=== PATIENT | female | born 1930 | race African-American/Black ===

== ENCOUNTER 2017-09-22 16:17 | Observation (INO) ==
[2017-09-22] MEDS ORDERED: MAGNESIUM SULF RIDER 2 GM in PREMIX 1 EACH IV PRN ×2 (16:31→16:35)
[2017-09-22] MEDS ORDERED: BISACODYL 5 MG TABLET PO PRN (16:31)
[2017-09-22] MEDS ORDERED: ONDANSETRON 4 MG/2 ML VIAL IV PRN (16:31)
[2017-09-22] MEDS ORDERED: guaiFENesin/DM ER 600-30 MG TABLET PO PRN (16:31)
[2017-09-22] MEDS ORDERED: MAGNESIUM SULF RIDER 4 GM in PREMIX 1 EACH IV PRN (16:31)
[2017-09-22] MEDS ORDERED: ACETAMINOPHEN 325 MG TABLET PO PRN (16:31)
[2017-09-22] MEDS ORDERED: ZALEPLON 5 MG CAPSULE PO PRN (16:31)
[2017-09-22] MEDS ORDERED: POTASSIUM CHLORIDE RIDER 10 MEQ in PREMIX 1 EACH IV PRN ×2 (16:35→19:38)
[2017-09-22] MEDS ORDERED: ASPIRIN 325 MG TABLET PO ONE (16:35)
[2017-09-22] MEDS ORDERED: NITROGLYCERIN SL 0.4 MG TABLET SL PRN (16:45)
[2017-09-22 17:39] LABS: Basophils # 0.1 10*3/uL (0.0-0.2); Basophils % 0.6 % (0.0-0.8); Eosinophils % 0.2 % (0.00-10.9); Hemoglobin 12.3 GM/DL (12.0-16.0); Immature Granulocytes % 1.1 %; Immature Granulocytes Absolute 0.09 #; Lymphocytes # 1.1 10*3/uL (1.4-4.0); Lymphocytes % 13.1 % (21.3-54.2); Mean Corpuscular HGB Conc 34.2 GM/DL (32-36); Mean Corpuscular Hemoglobin 30 PG (27-34); Mean Corpuscular Volume 86.5 FL (87-102); Mean Platelet Volume 11.1 FL (9.6-12.0); Monocytes # 0.3 10*3/uL (0.11-0.8); Monocytes % 3.8 % (1.7-12.7); Neutrophils # 6.9 10*3/uL (1.4-7.4); Neutrophils % 81.2 % (38.7-73.9); Platelet Count 223 T/CUMM (130-400); Red Blood Count 4.16 MC/CUMM (3.8-5.5); Red Cell Distribution Width 15.2 % (9.3-17.3); White Blood Count 8.5 T/CUMM (4-12)
[2017-09-22 17:50] LABS: INR 0.9
[2017-09-22] MEDS ORDERED: ENOXAPARIN 100 MG/ML SYRINGE SUBCUT ONE (18:00)
[2017-09-22 18:08] LABS: Albumin 3.7 G/DL (3.4-5.0); Bilirubin,Total 0.7 MG/DL (0.2-1.0); Calcium 9.8 MG/DL (8.5-10.1); Osmolality,Calculated 291.1 MOS/KG (273-304); Potassium 3.6 MMOL/L (3.5-5.1); Total Protein 7.1 G/DL (6.4-8.3)
[2017-09-22 18:10] LABS: Troponin I Only < 0.015 NG/ML (0.00-0.045)
[2017-09-22] MEDS: SODIUM CHLORIDE 0.9% 1,000 ML IV SCH (18:21)
[2017-09-22] MEDS ORDERED: hydrALAZINE 20 MG/1 ML VIAL IV PRN (18:26)
[2017-09-22 20:04] LABS: Troponin I Only < 0.015 NG/ML (0.00-0.045)
[2017-09-22] MEDS ORDERED: ATORVASTATIN 40 MG TABLET PO SCH (21:00)
[2017-09-22] MEDS: GABAPENTIN 100 MG CAPSULE PO SCH (21:31)
[2017-09-22] MEDS: DOCUSATE SODIUM 100 MG CAPSULE PO SCH (21:31)
[2017-09-22] MEDS: DONEPEZIL 5 MG TABLET PO SCH (21:31)
[2017-09-22] MEDS: cloNIDine 0.1 MG TABLET PO SCH (21:32)
[2017-09-22] MEDS: ATORVASTATIN 40 MG TABLET PO SCH (21:32)
[2017-09-22] MEDS: OXYBUTYNIN 5 MG TABLET PO SCH (21:32)
[2017-09-22] MEDS: VERAPAMIL 120 MG TABLET PO SCH (21:32)
[2017-09-22 23:21] LABS: Troponin I Only < 0.015 NG/ML (0.00-0.045)
[2017-09-23 05:07] LABS: Basophils # 0.1 10*3/uL (0.0-0.2); Basophils % 1.1 % (0.0-0.8); Eosinophils # 0.2 10*3/uL (0.0-0.87); Hematocrit 31.4 VOL% (35.7-47.0); Immature Granulocytes % 0.9 %; Immature Granulocytes Absolute 0.07 #; Lymphocytes # 1.8 10*3/uL (1.4-4.0); Mean Corpuscular HGB Conc 31.8 GM/DL (32-36); Mean Corpuscular Hemoglobin 28 PG (27-34); Mean Platelet Volume 10.9 FL (9.6-12.0); Monocytes # 0.7 10*3/uL (0.11-0.8); Monocytes % 8.8 % (1.7-12.7); Neutrophils # 4.8 10*3/uL (1.4-7.4); Neutrophils % 63.2 % (38.7-73.9); Platelet Count 183 T/CUMM (130-400); Red Blood Count 3.53 MC/CUMM (3.8-5.5); White Blood Count 7.5 T/CUMM (4-12)
[2017-09-23 05:29] LABS: Calcium 8.6 MG/DL (8.5-10.1); Osmolality,Calculated 287.1 MOS/KG (273-304); Potassium 3.1 MMOL/L (3.5-5.1); Risk Ratio 2.69; VLDL CHOLESTEROL 13.4 MG/DL
[2017-09-23] MEDS ORDERED: POTASSIUM CHLORIDE IV SCH (06:00)
[2017-09-23] MEDS ORDERED: SODIUM CHLORIDE 0.9% IV SCH (06:00)
[2017-09-23] MEDS ORDERED: DIAZEPAM 5 MG TABLET PO ONE ×2 (06:30→08:00)
[2017-09-23] MEDS ORDERED: MAGNESIUM SULF RIDER 2 GM in PREMIX 1 EACH IV PRN (06:30)
[2017-09-23] MEDS ORDERED: HEPARIN/NACL 0.9% 2 UNITS/ML 2,000 ML IV ONE (06:48)
[2017-09-23] MEDS ORDERED: LIDOCAINE 1% 20 ML VIAL ONE (06:48)
[2017-09-23] MEDS ORDERED: diphenhydrAMINE CAP 25 MG CAPSULE ONE (06:55)
[2017-09-23] MEDS ORDERED: MIDAZOLAM 2 MG/2 ML VIAL ONE (07:29)
[2017-09-23] MEDS ORDERED: HYDROmorphone 2 MG/1 ML VIAL ONE (07:29)
[2017-09-23] MEDS ORDERED: BIVALIRUDIN 250 MG VIAL IV ONE ×2 (07:41→08:45)
[2017-09-23] MEDS ORDERED: LABETALOL 20 MG/4 ML SYRINGE IV ONE ×3 (07:44→08:55)
[2017-09-23] MEDS ORDERED: diphenhydrAMINE CAP 25 MG CAPSULE PO ONE (08:00)
[2017-09-23] MEDS ORDERED: ASPIRIN EC 81 MG TABLET PO SCH (09:00)
[2017-09-23] MEDS ORDERED: TICAGRELOR 90 MG TABLET ONE (09:10)
[2017-09-23] MEDS: SODIUM CHLORIDE 0.9% 1,000 ML IV SCH ×3 (10:25→16:37)
[2017-09-23] MEDS: ASPIRIN 325 MG TABLET PO SCH (10:48)
[2017-09-23] MEDS: CHOLECALCIFEROL 1,000 UNIT TABLET PO SCH (10:48)
[2017-09-23] MEDS: predniSONE 10 MG TABLET PO SCH (10:48)
[2017-09-23] MEDS: hydroCHLOROthiazide 25 MG TABLET PO SCH (10:49)
[2017-09-23] MEDS: FOLIC ACID 1 MG TABLET PO SCH (10:49)
[2017-09-23] MEDS: VERAPAMIL 120 MG TABLET PO SCH ×2 (10:51→20:53)
[2017-09-23] MEDS: cloNIDine 0.1 MG TABLET PO SCH ×2 (10:52→20:54)
[2017-09-23] MEDS: DOCUSATE SODIUM 100 MG CAPSULE PO SCH ×2 (10:52→20:54)
[2017-09-23] MEDS: MULTIVITAMIN (CENTRUM) TABLET PO SCH (10:52)
[2017-09-23] MEDS: OXYBUTYNIN 5 MG TABLET PO SCH ×2 (10:52→20:54)
[2017-09-23] MEDS: PANTOPRAZOLE 40 MG TABLET PO SCH (10:52)
[2017-09-23] MEDS: LORATADINE 10 MG TABLET PO SCH (10:52)
[2017-09-23] MEDS: OMEGA 3 ACID ETHYL ESTERS 1 GM CAPSULE PO SCH (10:53)
[2017-09-23] MEDS: TICAGRELOR 90 MG TABLET PO SCH (20:53)
[2017-09-23] MEDS: ATORVASTATIN 40 MG TABLET PO SCH (20:54)
[2017-09-23] MEDS: GABAPENTIN 100 MG CAPSULE PO SCH (20:54)
[2017-09-23] MEDS: DONEPEZIL 5 MG TABLET PO SCH (20:54)
[2017-09-24 02:47] LABS: Basophils # 0.1 10*3/uL (0.0-0.2); Basophils % 0.7 % (0.0-0.8); Eosinophils # 0.2 10*3/uL (0.0-0.87); Eosinophils % 1.6 % (0.00-10.9); Hemoglobin 10.8 GM/DL (12.0-16.0); Immature Granulocytes % 1.5 %; Immature Granulocytes Absolute 0.15 #; Lymphocytes # 1.4 10*3/uL (1.4-4.0); Lymphocytes % 14.3 % (21.3-54.2); Mean Corpuscular HGB Conc 32.7 GM/DL (32-36); Mean Corpuscular Hemoglobin 29 PG (27-34); Mean Corpuscular Volume 87.8 FL (87-102); Mean Platelet Volume 11.1 FL (9.6-12.0); Monocytes # 0.7 10*3/uL (0.11-0.8); Monocytes % 7.3 % (1.7-12.7); Neutrophils # 7.3 10*3/uL (1.4-7.4); Neutrophils % 74.6 % (38.7-73.9); Platelet Count 191 T/CUMM (130-400); Red Blood Count 3.76 MC/CUMM (3.8-5.5); Red Cell Distribution Width 15.3 % (9.3-17.3); White Blood Count 9.8 T/CUMM (4-12)
[2017-09-24 03:05] LABS: Calcium 9.2 MG/DL (8.5-10.1); Osmolality,Calculated 281.4 MOS/KG (273-304); Potassium 3.4 MMOL/L (3.5-5.1)
[2017-09-24] MEDS ORDERED: POTASSIUM CHLORIDE IV SCH (03:30)
[2017-09-24] MEDS ORDERED: SODIUM CHLORIDE 0.9% IV SCH (03:30)
[2017-09-24] MEDS: hydroCHLOROthiazide 25 MG TABLET PO SCH ×2 (07:30→08:31)
[2017-09-24] MEDS: cloNIDine 0.1 MG TABLET PO SCH ×2 (07:31→08:31)
[2017-09-24] MEDS: VERAPAMIL 120 MG TABLET PO SCH ×3 (07:31→20:20)
[2017-09-24] MEDS: LORATADINE 10 MG TABLET PO SCH (08:29)
[2017-09-24] MEDS: TICAGRELOR 90 MG TABLET PO SCH ×2 (08:29→20:20)
[2017-09-24] MEDS: FOLIC ACID 1 MG TABLET PO SCH (08:29)
[2017-09-24] MEDS: CHOLECALCIFEROL 1,000 UNIT TABLET PO SCH (08:29)
[2017-09-24] MEDS: PANTOPRAZOLE 40 MG TABLET PO SCH (08:29)
[2017-09-24] MEDS: ASPIRIN EC 81 MG TABLET PO SCH (08:29)
[2017-09-24] MEDS: MULTIVITAMIN (CENTRUM) TABLET PO SCH (08:29)
[2017-09-24] MEDS: OXYBUTYNIN 5 MG TABLET PO SCH ×2 (08:29→20:20)
[2017-09-24] MEDS: predniSONE 10 MG TABLET PO SCH (08:29)
[2017-09-24] MEDS: OMEGA 3 ACID ETHYL ESTERS 1 GM CAPSULE PO SCH (08:30)
[2017-09-24] MEDS: DOCUSATE SODIUM 100 MG CAPSULE PO SCH ×2 (08:30→20:21)
[2017-09-24] MEDS: ASPIRIN 325 MG TABLET PO SCH (08:30)
[2017-09-24] MEDS: SODIUM CHLORIDE 0.9% 1,000 ML IV SCH ×2 (08:32→10:20)
[2017-09-24] MEDS: CARVEDILOL 3.125 MG TABLET PO SCH ×2 (10:20→20:20)
[2017-09-24] MEDS: GABAPENTIN 100 MG CAPSULE PO SCH (20:20)
[2017-09-24] MEDS: ATORVASTATIN 40 MG TABLET PO SCH (20:21)
[2017-09-24] MEDS: DONEPEZIL 5 MG TABLET PO SCH (20:21)
[2017-09-25 07:58] VITALS: BP 138/69
[2017-09-25] MEDS: hydroCHLOROthiazide 25 MG TABLET PO SCH (08:27)
[2017-09-25] MEDS: CHOLECALCIFEROL 1,000 UNIT TABLET PO SCH (08:27)
[2017-09-25] MEDS: predniSONE 10 MG TABLET PO SCH (08:27)
[2017-09-25] MEDS: VERAPAMIL 120 MG TABLET PO SCH (08:28)
[2017-09-25] MEDS: ASPIRIN EC 81 MG TABLET PO SCH (08:28)
[2017-09-25] MEDS: OXYBUTYNIN 5 MG TABLET PO SCH (08:28)
[2017-09-25] MEDS: MULTIVITAMIN (CENTRUM) TABLET PO SCH (08:28)
[2017-09-25] MEDS: PANTOPRAZOLE 40 MG TABLET PO SCH (08:28)
[2017-09-25] MEDS: LORATADINE 10 MG TABLET PO SCH (08:28)
[2017-09-25] MEDS: DOCUSATE SODIUM 100 MG CAPSULE PO SCH (08:28)
[2017-09-25] MEDS: OMEGA 3 ACID ETHYL ESTERS 1 GM CAPSULE PO SCH (08:28)
[2017-09-25] MEDS: TICAGRELOR 90 MG TABLET PO SCH (08:28)
[2017-09-25] MEDS: FOLIC ACID 1 MG TABLET PO SCH (08:29)
[2017-09-25] MEDS: CARVEDILOL 3.125 MG TABLET PO SCH (08:29)
== END 2017-09-25 12:56 | disposition home or self-care (01) ==
LOC: EDBD → INTOOBSV 16:41 → N.TELES 16:41
PROVIDERS: ADMIT Internal Medicine Cardiovascular Disease; ATTEND Internal Medicine Cardiovascular Disease
PROC: CLCCHCL (ICD-10-PCS; 2017-09-23 07:45)

== ENCOUNTER 2017-09-26 12:47 | Observation (INO) ==
[2017-09-26 13:34] LABS: Basophils # 0.1 10*3/uL (0.0-0.2); Basophils % 0.7 % (0.0-0.8); Eosinophils # 0.3 10*3/uL (0.0-0.87); Eosinophils % 2.7 % (0.00-10.9); Hematocrit 29.5 VOL% (35.7-47.0); Hemoglobin 9.6 GM/DL (12.0-16.0); Immature Granulocytes % 1.1 %; Lymphocytes # 0.8 10*3/uL (1.4-4.0); Lymphocytes % 8.3 % (21.3-54.2); Mean Corpuscular HGB Conc 32.5 GM/DL (32-36); Mean Corpuscular Hemoglobin 29 PG (27-34); Mean Corpuscular Volume 88.3 FL (87-102); Mean Platelet Volume 10.8 FL (9.6-12.0); Monocytes # 0.6 10*3/uL (0.11-0.8); Monocytes % 6.6 % (1.7-12.7); Neutrophils # 7.4 10*3/uL (1.4-7.4); Neutrophils % 80.6 % (38.7-73.9); Platelet Count 179 T/CUMM (130-400); Red Blood Count 3.34 MC/CUMM (3.8-5.5); Red Cell Distribution Width 15.4 % (9.3-17.3); White Blood Count 9.2 T/CUMM (4-12)
[2017-09-26 13:54] LABS: Albumin 3.1 G/DL (3.4-5.0); Calcium 9.4 MG/DL (8.5-10.1); Osmolality,Calculated 283.8 MOS/KG (273-304); Potassium 3.2 MMOL/L (3.5-5.1); Total Protein 5.8 G/DL (6.4-8.3); Troponin I Only 0.021 NG/ML (0.00-0.045)
[2017-09-26] MEDS ORDERED: LORazepam 1 MG TABLET PO STA (14:13)
[2017-09-26] MEDS ORDERED: LORazepam 1 MG TABLET ONE (14:15)
[2017-09-26 14:18] LABS: PT Patient Result 10.4 SECS; Partial Thromboplastin Time 22.8 SECS (0-40)
[2017-09-26] MEDS ORDERED: MORPHINE 2 MG/1 ML SYRINGE IV PRN (16:30)
[2017-09-26] MEDS ORDERED: ACETAMINOPHEN 325 MG TABLET PO PRN (16:30)
[2017-09-26] MEDS ORDERED: ONDANSETRON 4 MG/2 ML VIAL IV PRN (16:39)
[2017-09-26] MEDS ORDERED: MAGNESIUM SULF RIDER 4 GM in PREMIX 1 EACH IV PRN (16:39)
[2017-09-26] MEDS ORDERED: POTASSIUM CHLORIDE RIDER 10 MEQ in PREMIX 1 EACH IV PRN (16:39)
[2017-09-26] MEDS ORDERED: DOCUSATE SODIUM 100 MG CAPSULE PO PRN ×2 (16:39→16:47)
[2017-09-26] MEDS ORDERED: ZALEPLON 5 MG CAPSULE PO PRN (16:39)
[2017-09-26] MEDS ORDERED: MAGNESIUM SULF RIDER 2 GM in PREMIX 1 EACH IV PRN (16:39)
[2017-09-26] MEDS ORDERED: ENOXAPARIN 30 MG/0.3 ML SYRINGE SUBCUT SCH (17:00)
[2017-09-26] MEDS: GABAPENTIN 100 MG CAPSULE PO SCH (21:55)
[2017-09-26] MEDS: TICAGRELOR 90 MG TABLET PO SCH (21:55)
[2017-09-26] MEDS: ATORVASTATIN 40 MG TABLET PO SCH (21:55)
[2017-09-26] MEDS: OXYBUTYNIN 5 MG TABLET PO SCH (21:56)
[2017-09-27 06:21] LABS: Basophils # 0.1 10*3/uL (0.0-0.2); Basophils % 0.8 % (0.0-0.8); Eosinophils # 0.4 10*3/uL (0.0-0.87); Eosinophils % 5.4 % (0.00-10.9); Hematocrit 28.8 VOL% (35.7-47.0); Hemoglobin 9.6 GM/DL (12.0-16.0); Immature Granulocytes % 1.2 %; Immature Granulocytes Absolute 0.09 #; Lymphocytes # 0.9 10*3/uL (1.4-4.0); Mean Corpuscular HGB Conc 33.3 GM/DL (32-36); Mean Corpuscular Hemoglobin 29 PG (27-34); Mean Corpuscular Volume 87.5 FL (87-102); Mean Platelet Volume 11.2 FL (9.6-12.0); Monocytes # 0.6 10*3/uL (0.11-0.8); Monocytes % 7.2 % (1.7-12.7); Neutrophils # 5.7 10*3/uL (1.4-7.4); Neutrophils % 73.4 % (38.7-73.9); Platelet Count 176 T/CUMM (130-400); Red Blood Count 3.29 MC/CUMM (3.8-5.5); Red Cell Distribution Width 15.4 % (9.3-17.3); White Blood Count 7.8 T/CUMM (4-12)
[2017-09-27 07:07] LABS: Calcium 9.2 MG/DL (8.5-10.1); Osmolality,Calculated 286.4 MOS/KG (273-304); Potassium 3.2 MMOL/L (3.5-5.1); Thyroid Stimulating Hormone 2.25 uIU/ml (0.358-3.74)
[2017-09-27] MEDS ORDERED: hydroCHLOROthiazide 25 MG TABLET PO SCH (09:00)
[2017-09-27] MEDS: CHOLECALCIFEROL 1,000 UNIT TABLET PO SCH (13:32)
[2017-09-27] MEDS: TICAGRELOR 90 MG TABLET PO SCH ×2 (13:33→22:04)
[2017-09-27] MEDS: predniSONE 10 MG TABLET PO SCH (13:33)
[2017-09-27] MEDS: FOLIC ACID 1 MG TABLET PO SCH (13:33)
[2017-09-27] MEDS: PANTOPRAZOLE 40 MG TABLET PO SCH (13:34)
[2017-09-27] MEDS: ASPIRIN EC 81 MG TABLET PO SCH (13:34)
[2017-09-27] MEDS: OXYBUTYNIN 5 MG TABLET PO SCH ×2 (13:35→22:05)
[2017-09-27] MEDS: OMEGA 3 ACID ETHYL ESTERS 1 GM CAPSULE PO SCH (13:36)
[2017-09-27] MEDS: POTASSIUM CHLORIDE 20 MEQ TABLET PO PRN ×4 (15:39→22:04)
[2017-09-27] MEDS: ATORVASTATIN 40 MG TABLET PO SCH (22:04)
[2017-09-27] MEDS: GABAPENTIN 100 MG CAPSULE PO SCH (22:05)
[2017-09-28 05:14] LABS: Basophils # 0.1 10*3/uL (0.0-0.2); Basophils % 0.6 % (0.0-0.8); Eosinophils # 0.2 10*3/uL (0.0-0.87); Eosinophils % 1.9 % (0.00-10.9); Hematocrit 29.7 VOL% (35.7-47.0); Hemoglobin 9.8 GM/DL (12.0-16.0); Immature Granulocytes % 0.9 %; Immature Granulocytes Absolute 0.08 #; Lymphocytes # 0.8 10*3/uL (1.4-4.0); Lymphocytes % 8.6 % (21.3-54.2); Mean Corpuscular Hemoglobin 29 PG (27-34); Mean Corpuscular Volume 88.9 FL (87-102); Mean Platelet Volume 10.5 FL (9.6-12.0); Monocytes # 0.6 10*3/uL (0.11-0.8); Monocytes % 7.1 % (1.7-12.7); Neutrophils # 7.3 10*3/uL (1.4-7.4); Neutrophils % 80.9 % (38.7-73.9); Platelet Count 169 T/CUMM (130-400); Red Blood Count 3.34 MC/CUMM (3.8-5.5); White Blood Count 9.1 T/CUMM (4-12)
[2017-09-28 05:33] LABS: Calcium 8.9 MG/DL (8.5-10.1); Osmolality,Calculated 287.3 MOS/KG (273-304); Potassium 3.8 MMOL/L (3.5-5.1)
[2017-09-28] MEDS ORDERED: amLODIPine 5 MG TABLET PO SCH (09:00)
[2017-09-28] MEDS: OXYBUTYNIN 5 MG TABLET PO SCH (09:19)
[2017-09-28] MEDS: TICAGRELOR 90 MG TABLET PO SCH (09:19)
[2017-09-28] MEDS: OMEGA 3 ACID ETHYL ESTERS 1 GM CAPSULE PO SCH (09:19)
[2017-09-28] MEDS: CHOLECALCIFEROL 1,000 UNIT TABLET PO SCH (09:19)
[2017-09-28] MEDS: ASPIRIN EC 81 MG TABLET PO SCH (09:19)
[2017-09-28] MEDS: predniSONE 10 MG TABLET PO SCH (09:19)
[2017-09-28] MEDS: PANTOPRAZOLE 40 MG TABLET PO SCH (09:20)
[2017-09-28] MEDS: FOLIC ACID 1 MG TABLET PO SCH (09:20)
[2017-09-28 17:43] VITALS: BP 162/94
== END 2017-09-28 17:30 | disposition home or self-care (01) ==
LOC: EDBD → EDUNIT# → N.ED 12:47 → N.EDINP 12:47 → N.TELEN 18:31
PROVIDERS: ADMIT Internal Medicine Cardiovascular Disease; ATTEND Internal Medicine Cardiovascular Disease

== ENCOUNTER 2019-01-10 09:42 | Inpatient (IN) ==
[2019-01-10] MEDS ORDERED: RACEPINEPHRINE 0.5 ML NEB RESP TX STA (10:05)
[2019-01-10 10:33] LABS: Basophils # 0.1 10*3/uL (0.0-0.2); Basophils % 0.7 % (0.0-0.8); Eosinophils # 0.1 10*3/uL (0.0-0.87); Eosinophils % 1.3 % (0.00-10.9); Hemoglobin 9.3 GM/DL (12.0-16.0); Immature Granulocytes % 0.4 %; Immature Granulocytes Absolute 0.03 #; Lymphocytes # 0.9 10*3/uL (1.4-4.0); Lymphocytes % 11.3 % (21.3-54.2); Mean Corpuscular Volume 96.8 FL (87-102); Mean Platelet Volume 11.2 FL (9.6-12.0); Monocytes % 7.7 % (1.7-12.7); Neutrophils % 78.6 % (38.7-73.9); Platelet Count 147 T/CUMM (130-400); Red Cell Distribution Width 15.1 % (9.3-17.3); White Blood Count 7.5 T/CUMM (4-12)
[2019-01-10 10:51] LABS: Albumin 2.9 G/DL (3.4-5.0); Bilirubin,Total 1.4 MG/DL (0.2-1.0); INR 1.1; Osmolality,Calculated 298.6 MOS/KG (273-304); PT Patient Result 11.4 SECS; Partial Thromboplastin Time 21.7 SECS (0-40); Total Protein 5.3 G/DL (6.4-8.3)
[2019-01-10] MEDS ORDERED: HYDROmorphone 2 MG/1 ML VIAL IV STA (10:56)
[2019-01-10] MEDS ORDERED: ONDANSETRON 4 MG/2 ML VIAL IV STA (10:56)
[2019-01-10] MEDS ORDERED: ONDANSETRON 4 MG/2 ML VIAL ONE (10:57)
[2019-01-10] MEDS ORDERED: HYDROmorphone 2 MG/1 ML VIAL ONE (10:58)
[2019-01-10] MEDS ORDERED: PIPERACILLIN/TAZOBACTAM 3,375 MG in SODIUM CHLORIDE 0.9% 100 ML IV STA (11:02)
[2019-01-10] MEDS ORDERED: NITROGLYCERIN SL 0.4 MG TABLET SL PRN (14:32)
[2019-01-10] MEDS ORDERED: ONDANSETRON 4 MG/2 ML VIAL IV PRN (16:59)
[2019-01-10] MEDS: methylPREDNISolone SOD SUC 40 MG/1 ML VIAL IV SCH (18:04)
[2019-01-10] MEDS: OXYBUTYNIN 5 MG TABLET PO SCH (21:05)
[2019-01-10] MEDS: BACLOFEN 10 MG TABLET PO SCH (21:05)
[2019-01-10] MEDS: GABAPENTIN 100 MG CAPSULE PO SCH (21:05)
[2019-01-10] MEDS: ATORVASTATIN 40 MG TABLET PO SCH (21:05)
[2019-01-10] MEDS: PIPERACILLIN/TAZOBACTAM 3,375 MG in SODIUM CHLORIDE 0.9% 100 ML IV SCH (21:05)
[2019-01-10] MEDS: DONEPEZIL 5 MG TABLET PO SCH (21:05)
[2019-01-11] MEDS: PIPERACILLIN/TAZOBACTAM 3,375 MG in SODIUM CHLORIDE 0.9% 100 ML IV SCH ×3 (05:25→21:11)
[2019-01-11] MEDS: methylPREDNISolone SOD SUC 40 MG/1 ML VIAL IV SCH ×2 (05:33→17:28)
[2019-01-11 05:35] LABS: Basophils % 0.1 % (0.0-0.8); Hematocrit 25.5 VOL% (35.7-47.0); Hemoglobin 7.8 GM/DL (12.0-16.0); Immature Granulocytes % 0.4 %; Immature Granulocytes Absolute 0.04 #; Lymphocytes # 0.6 10*3/uL (1.4-4.0); Lymphocytes % 6.2 % (21.3-54.2); Mean Corpuscular HGB Conc 30.6 GM/DL (32-36); Mean Corpuscular Volume 99.2 FL (87-102); Mean Platelet Volume 11.7 FL (9.6-12.0); Monocytes % 4.5 % (1.7-12.7); Neutrophils % 88.8 % (38.7-73.9); Platelet Count 129 T/CUMM (130-400); Red Blood Count 2.57 MC/CUMM (3.8-5.5); Red Cell Distribution Width 15.2 % (9.3-17.3); White Blood Count 9.5 T/CUMM (4-12)
[2019-01-11 06:16] LABS: Albumin 2.6 G/DL (3.4-5.0); Calcium 9.1 MG/DL (8.5-10.1); Risk Ratio 2.67; Thyroid Stimulating Hormone 0.378 uIU/ml (0.358-3.74); Total Protein 5.6 G/DL (6.4-8.3); VLDL CHOLESTEROL 11.2 MG/DL
[2019-01-11] MEDS: predniSONE 10 MG TABLET PO SCH (08:55)
[2019-01-11] MEDS: FOLIC ACID 1 MG TABLET PO SCH (08:55)
[2019-01-11] MEDS: ASPIRIN EC 81 MG TABLET PO SCH (08:55)
[2019-01-11] MEDS: LORATADINE 10 MG TABLET PO SCH (08:55)
[2019-01-11] MEDS: PANTOPRAZOLE 40 MG TABLET PO SCH (08:55)
[2019-01-11] MEDS: amLODIPine 2.5 MG TABLET PO SCH (08:55)
[2019-01-11] MEDS: BACLOFEN 10 MG TABLET PO SCH ×2 (08:55→21:09)
[2019-01-11] MEDS: OXYBUTYNIN 5 MG TABLET PO SCH ×2 (08:57→21:08)
[2019-01-11] MEDS ORDERED: FUROSEMIDE 80 MG TABLET PO SCH (09:00)
[2019-01-11] MEDS ORDERED: ALBUTEROL 1.25 MG/3 ML NEB RESP TX PRN (15:09)
[2019-01-11] MEDS ORDERED: FUROSEMIDE 40 MG TABLET PO SCH (15:41)
[2019-01-11] MEDS: ALBUTEROL/IPRATROPIUM 3 ML NEB RESP TX SCH (19:08)
[2019-01-11] MEDS: GABAPENTIN 100 MG CAPSULE PO SCH (21:10)
[2019-01-11] MEDS: ATORVASTATIN 40 MG TABLET PO SCH (21:10)
[2019-01-11] MEDS: DONEPEZIL 5 MG TABLET PO SCH (21:11)
[2019-01-12] MEDS: ALBUTEROL/IPRATROPIUM 3 ML NEB RESP TX SCH ×4 (01:00→19:06)
[2019-01-12] MEDS: methylPREDNISolone SOD SUC 40 MG/1 ML VIAL IV SCH ×2 (04:35→21:58)
[2019-01-12] MEDS: PIPERACILLIN/TAZOBACTAM 3,375 MG in SODIUM CHLORIDE 0.9% 100 ML IV SCH ×3 (04:39→20:34)
[2019-01-12 04:40] LABS: Basophils % 0.1 % (0.0-0.8); Hematocrit 23.1 VOL% (35.7-47.0); Immature Granulocytes % 0.9 %; Immature Granulocytes Absolute 0.11 #; Lymphocytes # 0.6 10*3/uL (1.4-4.0); Lymphocytes % 4.7 % (21.3-54.2); Mean Corpuscular HGB Conc 30.3 GM/DL (32-36); Mean Corpuscular Volume 99.6 FL (87-102); Mean Platelet Volume 11.3 FL (9.6-12.0); Monocytes % 8.6 % (1.7-12.7); Neutrophils % 85.7 % (38.7-73.9); Platelet Count 130 T/CUMM (130-400); Red Blood Count 2.32 MC/CUMM (3.8-5.5); Red Cell Distribution Width 15.3 % (9.3-17.3); White Blood Count 12.4 T/CUMM (4-12)
[2019-01-12 04:59] LABS: Calcium 8.9 MG/DL (8.5-10.1); Osmolality,Calculated 294.8 MOS/KG (273-304)
[2019-01-12 05:02] LABS: Albumin 2.9 G/DL (3.4-5.0); Bilirubin,Total 0.5 MG/DL (0.2-1.0); Osmolality,Calculated 297.7 MOS/KG (273-304); Total Protein 5.9 G/DL (6.4-8.3)
[2019-01-12 06:15] LABS: Anisocytosis 1+; Lymphocytes 5 % (20-55); Metamyelocytes 1 %; Segmented Neutrophils 93 % (50-85); Total Cells Counted 100
[2019-01-12 06:16] LABS: Platelet Estimate Decreased
[2019-01-12] MEDS: amLODIPine 2.5 MG TABLET PO SCH (08:39)
[2019-01-12] MEDS: LORATADINE 10 MG TABLET PO SCH (08:40)
[2019-01-12] MEDS: ASPIRIN EC 81 MG TABLET PO SCH (08:40)
[2019-01-12] MEDS: FOLIC ACID 1 MG TABLET PO SCH (08:40)
[2019-01-12] MEDS: BACLOFEN 10 MG TABLET PO SCH ×2 (08:40→20:33)
[2019-01-12] MEDS: PANTOPRAZOLE 40 MG TABLET PO SCH (08:40)
[2019-01-12] MEDS: predniSONE 10 MG TABLET PO SCH (08:40)
[2019-01-12] MEDS: OXYBUTYNIN 5 MG TABLET PO SCH ×2 (08:40→20:33)
[2019-01-12] MEDS: SODIUM CHLORIDE 0.9% 1,000 ML IV SCH (13:14)
[2019-01-12] MEDS: ATORVASTATIN 40 MG TABLET PO SCH (20:33)
[2019-01-12] MEDS: DONEPEZIL 5 MG TABLET PO SCH (20:34)
[2019-01-12] MEDS: GABAPENTIN 100 MG CAPSULE PO SCH (20:34)
[2019-01-13] MEDS: ALBUTEROL/IPRATROPIUM 3 ML NEB RESP TX SCH ×4 (01:40→19:04)
[2019-01-13] MEDS: PIPERACILLIN/TAZOBACTAM 3,375 MG in SODIUM CHLORIDE 0.9% 100 ML IV SCH ×3 (05:05→21:13)
[2019-01-13 06:29] LABS: Basophils % 0.1 % (0.0-0.8); Hematocrit 21.3 VOL% (35.7-47.0); Hemoglobin 6.6 GM/DL (12.0-16.0); Immature Granulocytes % 1.6 %; Immature Granulocytes Absolute 0.17 #; Lymphocytes # 0.4 10*3/uL (1.4-4.0); Lymphocytes % 3.9 % (21.3-54.2); Mean Corpuscular Volume 98.2 FL (87-102); Mean Platelet Volume 11.4 FL (9.6-12.0); Monocytes % 5.7 % (1.7-12.7); Neutrophils % 88.7 % (38.7-73.9); Platelet Count 139 T/CUMM (130-400); Red Blood Count 2.17 MC/CUMM (3.8-5.5); Red Cell Distribution Width 15.7 % (9.3-17.3); White Blood Count 10.8 T/CUMM (4-12)
[2019-01-13 06:39] LABS: Calcium 8.9 MG/DL (8.5-10.1); Osmolality,Calculated 302.4 MOS/KG (273-304)
[2019-01-13] MEDS ORDERED: diphenhydrAMINE 50 MG/1 ML VIAL IV PRN (06:56)
[2019-01-13] MEDS ORDERED: FUROSEMIDE 40 MG/4 ML VIAL IV PRN (06:56)
[2019-01-13] MEDS ORDERED: SODIUM CHLORIDE 0.9% 1,000 ML IV PRN (06:56)
[2019-01-13 07:13] LABS: Band Neutrophils 1 % (0-10); Lymphocytes 4 % (20-55); Segmented Neutrophils 90 % (50-85); Total Cells Counted 100
[2019-01-13 07:14] LABS: Anisocytosis Slight; Macrocytosis 1+; Platelet Estimate Adequate
[2019-01-13] MEDS ORDERED: hydrALAZINE 20 MG/1 ML VIAL IV ONE ×2 (07:39→19:53)
[2019-01-13] MEDS: FOLIC ACID 1 MG TABLET PO SCH (08:44)
[2019-01-13] MEDS: amLODIPine 2.5 MG TABLET PO SCH (08:44)
[2019-01-13] MEDS: ASPIRIN EC 81 MG TABLET PO SCH (08:44)
[2019-01-13] MEDS: BACLOFEN 10 MG TABLET PO SCH ×2 (08:45→21:12)
[2019-01-13] MEDS: PANTOPRAZOLE 40 MG TABLET PO SCH (08:45)
[2019-01-13] MEDS: predniSONE 10 MG TABLET PO SCH (08:45)
[2019-01-13] MEDS: DOCUSATE SODIUM 100 MG CAPSULE PO PRN (08:45)
[2019-01-13] MEDS: LORATADINE 10 MG TABLET PO SCH (08:45)
[2019-01-13] MEDS: OXYBUTYNIN 5 MG TABLET PO SCH ×2 (08:45→21:12)
[2019-01-13] MEDS: methylPREDNISolone SOD SUC 40 MG/1 ML VIAL IV SCH ×2 (11:13→20:04)
[2019-01-13] MEDS: SODIUM CHLORIDE 0.9% 1,000 ML IV SCH ×2 (14:25→20:11)
[2019-01-13] MEDS ORDERED: hydrALAZINE 20 MG/1 ML VIAL IV PRN (16:59)
[2019-01-13 19:14] LABS: Hematocrit 31.3 VOL% (35.7-47.0); Hemoglobin 10.1 GM/DL (12.0-16.0)
[2019-01-13] MEDS: GABAPENTIN 100 MG CAPSULE PO SCH (21:12)
[2019-01-13] MEDS: ATORVASTATIN 40 MG TABLET PO SCH (21:12)
[2019-01-13] MEDS: DONEPEZIL 5 MG TABLET PO SCH (21:12)
[2019-01-13] MEDS ORDERED: LABETALOL 20 MG/4 ML SYRINGE IV ONE (22:31)
[2019-01-14] MEDS: niCARdipine INJ 25 MG in SODIUM CHLORIDE 0.9% 250 ML IV PRN ×3 (01:22→10:21)
[2019-01-14] MEDS: ALBUTEROL/IPRATROPIUM 3 ML NEB RESP TX SCH ×4 (01:40→19:08)
[2019-01-14 04:44] LABS: Basophils % 0.2 % (0.0-0.8); Hematocrit 32.9 VOL% (35.7-47.0); Hemoglobin 10.8 GM/DL (12.0-16.0); Immature Granulocytes % 1.9 %; Immature Granulocytes Absolute 0.25 #; Lymphocytes # 0.4 10*3/uL (1.4-4.0); Lymphocytes % 3.4 % (21.3-54.2); Mean Corpuscular HGB Conc 32.8 GM/DL (32-36); Mean Corpuscular Volume 92.2 FL (87-102); Mean Platelet Volume 11.8 FL (9.6-12.0); Monocytes % 5.9 % (1.7-12.7); NRBC # 0.09 10*3/uL; Neutrophils % 88.6 % (38.7-73.9); Platelet Count 177 T/CUMM (130-400); Red Blood Count 3.57 MC/CUMM (3.8-5.5); White Blood Count 13.1 T/CUMM (4-12)
[2019-01-14 05:13] LABS: Band Neutrophils 3 % (0-10); Lymphocytes 4 % (20-55); Nucleated Red Blood Cells 1 (0-5); Segmented Neutrophils 89 % (50-85); Total Cells Counted 100
[2019-01-14 05:14] LABS: Acanthocytes 1+; Anisocytosis 1+; Platelet Estimate Adequate
[2019-01-14] MEDS: SODIUM CHLORIDE 0.9% 1,000 ML IV SCH ×2 (07:00→09:20)
[2019-01-14] MEDS: methylPREDNISolone SOD SUC 40 MG/1 ML VIAL IV SCH ×2 (08:52→20:35)
[2019-01-14] MEDS: predniSONE 10 MG TABLET PO SCH (08:56)
[2019-01-14] MEDS: amLODIPine 10 MG TABLET PO SCH (08:56)
[2019-01-14] MEDS: OXYBUTYNIN 5 MG TABLET PO SCH ×2 (08:57→20:35)
[2019-01-14] MEDS: POTASSIUM CHLORIDE 20 MEQ TABLET PO PRN ×2 (08:57→10:56)
[2019-01-14] MEDS: BACLOFEN 10 MG TABLET PO SCH ×2 (08:58→20:35)
[2019-01-14] MEDS: ASPIRIN EC 81 MG TABLET PO SCH (08:58)
[2019-01-14] MEDS: LORATADINE 10 MG TABLET PO SCH (08:58)
[2019-01-14] MEDS: LOSARTAN 50 MG TABLET PO SCH (08:59)
[2019-01-14] MEDS: FOLIC ACID 1 MG TABLET PO SCH (08:59)
[2019-01-14] MEDS: CARVEDILOL 6.25 MG TABLET PO SCH ×2 (08:59→17:28)
[2019-01-14] MEDS ORDERED: LOSARTAN 50 MG TABLET PO SCH (09:00)
[2019-01-14] MEDS: PANTOPRAZOLE 40 MG TABLET PO SCH (09:00)
[2019-01-14] MEDS: PIPERACILLIN/TAZOBACTAM 3,375 MG in SODIUM CHLORIDE 0.9% 100 ML IV SCH ×2 (09:01→17:28)
[2019-01-14] MEDS ORDERED: niCARdipine INJ 25 MG in SODIUM CHLORIDE 0.9% 240 ML IV PRN (11:00)
[2019-01-14] MEDS: GABAPENTIN 100 MG CAPSULE PO SCH (20:34)
[2019-01-14] MEDS: ATORVASTATIN 40 MG TABLET PO SCH (20:35)
[2019-01-14] MEDS: DONEPEZIL 5 MG TABLET PO SCH (20:35)
[2019-01-15] MEDS: PIPERACILLIN/TAZOBACTAM 3,375 MG in SODIUM CHLORIDE 0.9% 100 ML IV SCH ×3 (00:17→18:08)
[2019-01-15] MEDS: ALBUTEROL/IPRATROPIUM 3 ML NEB RESP TX SCH ×4 (00:32→19:29)
[2019-01-15] MEDS ORDERED: ALBUTEROL/IPRATROPIUM 3 ML NEB RESP TX SCH (01:10)
[2019-01-15 05:05] LABS: Basophils % 0.1 % (0.0-0.8); Hematocrit 30.9 VOL% (35.7-47.0); Hemoglobin 9.8 GM/DL (12.0-16.0); Immature Granulocytes % 0.6 %; Immature Granulocytes Absolute 0.06 #; Lymphocytes # 0.3 10*3/uL (1.4-4.0); Lymphocytes % 2.7 % (21.3-54.2); Mean Corpuscular HGB Conc 31.7 GM/DL (32-36); Mean Corpuscular Volume 94.2 FL (87-102); Mean Platelet Volume 10.9 FL (9.6-12.0); NRBC # 0.02 10*3/uL; Neutrophils % 92.6 % (38.7-73.9); Platelet Count 157 T/CUMM (130-400); Red Blood Count 3.28 MC/CUMM (3.8-5.5); Red Cell Distribution Width 15.8 % (9.3-17.3); White Blood Count 10.1 T/CUMM (4-12)
[2019-01-15 05:19] LABS: Calcium 9.5 MG/DL (8.5-10.1); Osmolality,Calculated 295.8 MOS/KG (273-304)
[2019-01-15 05:34] LABS: Hypochromasia 1+; Lymphocytes 5 % (20-55); Ovalocytes Slight; Platelet Estimate Adequate; Segmented Neutrophils 92 % (50-85); Total Cells Counted 100
[2019-01-15] MEDS: predniSONE 10 MG TABLET PO SCH (09:51)
[2019-01-15] MEDS: FOLIC ACID 1 MG TABLET PO SCH (09:51)
[2019-01-15] MEDS: ASPIRIN EC 81 MG TABLET PO SCH (09:51)
[2019-01-15] MEDS: BACLOFEN 10 MG TABLET PO SCH ×2 (09:51→20:59)
[2019-01-15] MEDS: amLODIPine 10 MG TABLET PO SCH (09:51)
[2019-01-15] MEDS: LORATADINE 10 MG TABLET PO SCH (09:52)
[2019-01-15] MEDS: PANTOPRAZOLE 40 MG TABLET PO SCH (09:52)
[2019-01-15] MEDS: LOSARTAN 50 MG TABLET PO SCH ×2 (09:52→14:40)
[2019-01-15] MEDS: CARVEDILOL 6.25 MG TABLET PO SCH (09:52)
[2019-01-15] MEDS: OXYBUTYNIN 5 MG TABLET PO SCH ×2 (09:52→20:59)
[2019-01-15] MEDS: methylPREDNISolone SOD SUC 40 MG/1 ML VIAL IV SCH ×2 (09:53→20:59)
[2019-01-15] MEDS ORDERED: LOSARTAN 50 MG TABLET PO SCH (11:36)
[2019-01-15] MEDS ORDERED: LOSARTAN 50 MG TABLET PO ONE (11:38)
[2019-01-15] MEDS: INSULIN REGULAR 100 UNIT/ML SUBCUT SCH ×2 (16:16→20:58)
[2019-01-15] MEDS: CARVEDILOL 12.5 MG TABLET PO SCH (16:17)
[2019-01-15] MEDS: ATORVASTATIN 40 MG TABLET PO SCH (20:59)
[2019-01-15] MEDS: GABAPENTIN 100 MG CAPSULE PO SCH (20:59)
[2019-01-15] MEDS: DONEPEZIL 5 MG TABLET PO SCH (20:59)
[2019-01-16] MEDS: ALBUTEROL/IPRATROPIUM 3 ML NEB RESP TX SCH ×4 (00:23→19:20)
[2019-01-16] MEDS: PIPERACILLIN/TAZOBACTAM 3,375 MG in SODIUM CHLORIDE 0.9% 100 ML IV SCH ×3 (00:40→16:42)
[2019-01-16 05:01] LABS: Hematocrit 28.5 VOL% (35.7-47.0); Immature Granulocytes % 0.7 %; Immature Granulocytes Absolute 0.07 #; Lymphocytes # 0.3 10*3/uL (1.4-4.0); Lymphocytes % 2.9 % (21.3-54.2); Mean Corpuscular HGB Conc 31.6 GM/DL (32-36); Mean Corpuscular Volume 95.3 FL (87-102); Mean Platelet Volume 10.7 FL (9.6-12.0); NRBC # 0.03 10*3/uL; Neutrophils % 91.4 % (38.7-73.9); Platelet Count 156 T/CUMM (130-400); Red Blood Count 2.99 MC/CUMM (3.8-5.5); Red Cell Distribution Width 15.1 % (9.3-17.3); White Blood Count 10.3 T/CUMM (4-12)
[2019-01-16 05:26] LABS: Calcium 9.8 MG/DL (8.5-10.1); Osmolality,Calculated 299.7 MOS/KG (273-304)
[2019-01-16 05:32] LABS: Band Neutrophils 1 % (0-10); Lymphocytes 1 % (20-55); Platelet Estimate Adequate; Segmented Neutrophils 91 % (50-85); Total Cells Counted 100
[2019-01-16 05:33] LABS: Hypochromasia 1+
[2019-01-16] MEDS ORDERED: PROMETHAZINE 25 MG/1 ML VIAL IM ONE (07:30)
[2019-01-16] MEDS ORDERED: MEPERIDINE 50 MG/1 ML VIAL IM ONE (07:30)
[2019-01-16] MEDS ORDERED: LIDOCAINE 1% 20 ML VIAL MISC INJ ONE (08:00)
[2019-01-16] MEDS ORDERED: MIDAZOLAM 2 MG/2 ML VIAL IV ONE (08:00)
[2019-01-16] MEDS ORDERED: LIDOCAINE 2% VISCOUS 100 ML BOTTLE SWISH/SPIT ONE (08:00)
[2019-01-16] MEDS ORDERED: LIDOCAINE 2% 20 ML VIAL RESP TX ONE (08:00)
[2019-01-16] MEDS: INSULIN REGULAR 100 UNIT/ML SUBCUT SCH ×4 (08:00→22:10)
[2019-01-16] MEDS: ASPIRIN EC 81 MG TABLET PO SCH (11:30)
[2019-01-16] MEDS: FOLIC ACID 1 MG TABLET PO SCH (11:31)
[2019-01-16] MEDS: amLODIPine 10 MG TABLET PO SCH (11:31)
[2019-01-16] MEDS: LOSARTAN 50 MG TABLET PO SCH (11:31)
[2019-01-16] MEDS: CARVEDILOL 12.5 MG TABLET PO SCH ×2 (11:31→16:42)
[2019-01-16] MEDS: PANTOPRAZOLE 40 MG TABLET PO SCH (11:31)
[2019-01-16] MEDS: LORATADINE 10 MG TABLET PO SCH (11:31)
[2019-01-16] MEDS: OXYBUTYNIN 5 MG TABLET PO SCH ×2 (11:32→21:59)
[2019-01-16] MEDS: BACLOFEN 10 MG TABLET PO SCH ×2 (11:32→21:59)
[2019-01-16] MEDS: methylPREDNISolone SOD SUC 40 MG/1 ML VIAL IV SCH ×2 (11:33→21:59)
[2019-01-16] MEDS ORDERED: BISACODYL 5 MG TABLET PO ONE (12:27)
[2019-01-16] MEDS: GABAPENTIN 100 MG CAPSULE PO SCH (21:59)
[2019-01-16] MEDS: ATORVASTATIN 40 MG TABLET PO SCH (21:59)
[2019-01-16] MEDS: DONEPEZIL 5 MG TABLET PO SCH (21:59)
[2019-01-17] MEDS: PIPERACILLIN/TAZOBACTAM 3,375 MG in SODIUM CHLORIDE 0.9% 100 ML IV SCH ×3 (00:14→17:02)
[2019-01-17] MEDS: ALBUTEROL/IPRATROPIUM 3 ML NEB RESP TX SCH ×4 (01:00→18:55)
[2019-01-17 05:39] LABS: Basophils % 0.1 % (0.0-0.8); Hematocrit 28.6 VOL% (35.7-47.0); Immature Granulocytes % 0.6 %; Immature Granulocytes Absolute 0.06 #; Lymphocytes # 0.2 10*3/uL (1.4-4.0); Lymphocytes % 1.8 % (21.3-54.2); Mean Corpuscular HGB Conc 31.5 GM/DL (32-36); Mean Corpuscular Volume 95.3 FL (87-102); Mean Platelet Volume 11.1 FL (9.6-12.0); Monocytes % 4.3 % (1.7-12.7); NRBC # 0.02 10*3/uL; Neutrophils % 93.2 % (38.7-73.9); Platelet Count 156 T/CUMM (130-400); White Blood Count 10.8 T/CUMM (4-12)
[2019-01-17 06:00] LABS: Eosinophils 1 % (0-10); Hypochromasia 1+; Lymphocytes 2 % (20-55); Platelet Estimate Adequate; Segmented Neutrophils 90 % (50-85); Total Cells Counted 100
[2019-01-17 06:15] LABS: Calcium 9.4 MG/DL (8.5-10.1); Osmolality,Calculated 295.1 MOS/KG (273-304)
[2019-01-17] MEDS: INSULIN REGULAR 100 UNIT/ML SUBCUT SCH ×4 (08:44→20:28)
[2019-01-17] MEDS: amLODIPine 10 MG TABLET PO SCH (09:27)
[2019-01-17] MEDS: CARVEDILOL 12.5 MG TABLET PO SCH ×2 (09:27→17:02)
[2019-01-17] MEDS: OXYBUTYNIN 5 MG TABLET PO SCH ×2 (09:27→20:27)
[2019-01-17] MEDS: FOLIC ACID 1 MG TABLET PO SCH (09:27)
[2019-01-17] MEDS: ASPIRIN EC 81 MG TABLET PO SCH (09:28)
[2019-01-17] MEDS: methylPREDNISolone SOD SUC 40 MG/1 ML VIAL IV SCH ×2 (09:28→20:28)
[2019-01-17] MEDS: LOSARTAN 50 MG TABLET PO SCH (09:28)
[2019-01-17] MEDS: PANTOPRAZOLE 40 MG TABLET PO SCH (09:28)
[2019-01-17] MEDS: LORATADINE 10 MG TABLET PO SCH (09:28)
[2019-01-17] MEDS: BACLOFEN 10 MG TABLET PO SCH ×2 (09:28→20:27)
[2019-01-17] MEDS: CLOPIDOGREL 75 MG TABLET PO SCH (12:51)
[2019-01-17] MEDS: DOCUSATE SODIUM 100 MG CAPSULE PO PRN (12:55)
[2019-01-17] MEDS ORDERED: BISACODYL 5 MG TABLET PO ONE (17:25)
[2019-01-17] MEDS: GABAPENTIN 100 MG CAPSULE PO SCH (20:27)
[2019-01-17] MEDS: DOCUSATE SODIUM 100 MG CAPSULE PO SCH (20:27)
[2019-01-17] MEDS: DONEPEZIL 5 MG TABLET PO SCH (20:27)
[2019-01-17] MEDS: ATORVASTATIN 40 MG TABLET PO SCH (20:27)
[2019-01-18] MEDS: ALBUTEROL/IPRATROPIUM 3 ML NEB RESP TX SCH ×4 (00:01→19:15)
[2019-01-18] MEDS: PIPERACILLIN/TAZOBACTAM 3,375 MG in SODIUM CHLORIDE 0.9% 100 ML IV SCH ×3 (00:32→17:03)
[2019-01-18 05:25] LABS: Basophils % 0.2 % (0.0-0.8); Hematocrit 28.9 VOL% (35.7-47.0); Hemoglobin 8.9 GM/DL (12.0-16.0); Immature Granulocytes % 1.2 %; Immature Granulocytes Absolute 0.13 #; Lymphocytes # 0.2 10*3/uL (1.4-4.0); Lymphocytes % 2.3 % (21.3-54.2); Mean Corpuscular HGB Conc 30.8 GM/DL (32-36); Mean Corpuscular Volume 96.3 FL (87-102); Mean Platelet Volume 10.6 FL (9.6-12.0); Monocytes % 5.3 % (1.7-12.7); NRBC # 0.02 10*3/uL; Platelet Count 165 T/CUMM (130-400); Red Cell Distribution Width 14.7 % (9.3-17.3); White Blood Count 10.6 T/CUMM (4-12)
[2019-01-18 06:00] LABS: Calcium 9.6 MG/DL (8.5-10.1); Osmolality,Calculated 297.8 MOS/KG (273-304)
[2019-01-18 06:01] LABS: Lymphocytes 3 % (20-55); Segmented Neutrophils 94 % (50-85); Total Cells Counted 100
[2019-01-18 06:03] LABS: Burr Cells 1+; Hypochromasia 1+; Platelet Estimate Normal; Schistocytes Few
[2019-01-18] MEDS: INSULIN REGULAR 100 UNIT/ML SUBCUT SCH ×4 (08:56→21:10)
[2019-01-18] MEDS: LORATADINE 10 MG TABLET PO SCH (09:09)
[2019-01-18] MEDS: FOLIC ACID 1 MG TABLET PO SCH (09:09)
[2019-01-18] MEDS: LOSARTAN 50 MG TABLET PO SCH (09:09)
[2019-01-18] MEDS: SENNA 8.6 MG TABLET PO SCH (09:09)
[2019-01-18] MEDS: BACLOFEN 10 MG TABLET PO SCH ×2 (09:09→21:12)
[2019-01-18] MEDS: CARVEDILOL 12.5 MG TABLET PO SCH ×2 (09:10→17:03)
[2019-01-18] MEDS: amLODIPine 10 MG TABLET PO SCH (09:10)
[2019-01-18] MEDS: methylPREDNISolone SOD SUC 40 MG/1 ML VIAL IV SCH ×2 (09:10→21:17)
[2019-01-18] MEDS: ASPIRIN EC 81 MG TABLET PO SCH (09:10)
[2019-01-18] MEDS: OXYBUTYNIN 5 MG TABLET PO SCH ×2 (09:10→21:11)
[2019-01-18] MEDS: PANTOPRAZOLE 40 MG TABLET PO SCH (09:10)
[2019-01-18] MEDS: DOCUSATE SODIUM 100 MG CAPSULE PO SCH ×2 (09:10→21:12)
[2019-01-18] MEDS: CLOPIDOGREL 75 MG TABLET PO SCH (09:10)
[2019-01-18] MEDS: ATORVASTATIN 40 MG TABLET PO SCH (21:11)
[2019-01-18] MEDS: GABAPENTIN 100 MG CAPSULE PO SCH (21:11)
[2019-01-18] MEDS: DONEPEZIL 5 MG TABLET PO SCH (21:12)
[2019-01-19] MEDS: PIPERACILLIN/TAZOBACTAM 3,375 MG in SODIUM CHLORIDE 0.9% 100 ML IV SCH ×2 (01:03→11:37)
[2019-01-19] MEDS: ALBUTEROL/IPRATROPIUM 3 ML NEB RESP TX SCH ×2 (02:15→07:18)
[2019-01-19 05:21] LABS: Basophils % 0.1 % (0.0-0.8); Hematocrit 28.1 VOL% (35.7-47.0); Hemoglobin 8.9 GM/DL (12.0-16.0); Immature Granulocytes % 1.4 %; Immature Granulocytes Absolute 0.16 #; Lymphocytes # 0.3 10*3/uL (1.4-4.0); Lymphocytes % 2.1 % (21.3-54.2); Mean Corpuscular HGB Conc 31.7 GM/DL (32-36); Mean Corpuscular Volume 95.6 FL (87-102); Mean Platelet Volume 10.9 FL (9.6-12.0); Monocytes % 4.6 % (1.7-12.7); NRBC # 0.02 10*3/uL; Neutrophils % 91.8 % (38.7-73.9); Platelet Count 182 T/CUMM (130-400); Red Blood Count 2.94 MC/CUMM (3.8-5.5); Red Cell Distribution Width 14.7 % (9.3-17.3); White Blood Count 11.8 T/CUMM (4-12)
[2019-01-19 05:35] LABS: Calcium 9.6 MG/DL (8.5-10.1)
[2019-01-19 05:48] LABS: Lymphocytes 3 % (20-55); Metamyelocytes 1 %; Segmented Neutrophils 92 % (50-85); Total Cells Counted 100
[2019-01-19 05:49] LABS: Burr Cells 1+; Hypochromasia 1+; Ovalocytes 1+; Platelet Estimate Normal
[2019-01-19] MEDS: INSULIN REGULAR 100 UNIT/ML SUBCUT SCH ×2 (07:32→11:35)
[2019-01-19] MEDS ORDERED: DIAZEPAM 5 MG TABLET PO ONE (08:51)
[2019-01-19] MEDS: CARVEDILOL 12.5 MG TABLET PO SCH (08:56)
[2019-01-19] MEDS: amLODIPine 10 MG TABLET PO SCH (08:56)
[2019-01-19] MEDS: FOLIC ACID 1 MG TABLET PO SCH (11:35)
[2019-01-19] MEDS: OXYBUTYNIN 5 MG TABLET PO SCH (11:35)
[2019-01-19] MEDS: PANTOPRAZOLE 40 MG TABLET PO SCH (11:35)
[2019-01-19] MEDS: DOCUSATE SODIUM 100 MG CAPSULE PO SCH (11:35)
[2019-01-19] MEDS: LORATADINE 10 MG TABLET PO SCH (11:35)
[2019-01-19] MEDS: SENNA 8.6 MG TABLET PO SCH (11:36)
[2019-01-19] MEDS: ASPIRIN EC 81 MG TABLET PO SCH (11:36)
[2019-01-19] MEDS: BACLOFEN 10 MG TABLET PO SCH (11:36)
[2019-01-19] MEDS: LOSARTAN 50 MG TABLET PO SCH (11:37)
[2019-01-19] MEDS: methylPREDNISolone SOD SUC 40 MG/1 ML VIAL IV SCH (11:37)
[2019-01-19 12:05] VITALS: BP 112/59
== END 2019-01-19 16:20 | disposition swing bed (61) | DRG 180 ==
LOC: EDUNIT# → N.ED 09:42 → N.EDINP 11:03 → SUATTDRO 11:03 → N.2E 13:36 → N.CC 01-14 00:43 → N.5E 01-15 18:13
PROVIDERS: ADMIT Hospitalist; ATTEND Internal Medicine Cardiovascular Disease
PROC: BRONCHB (2019-01-16 07:35)

== ENCOUNTER 2019-02-18 01:03 | Inpatient (IN) ==
[2019-02-18 01:52] LABS: Basophils % 0.4 % (0.0-0.8); Eosinophils % 0.6 % (0.00-10.9); Hematocrit 23.2 VOL% (35.7-47.0); Immature Granulocytes % 2.1 %; Immature Granulocytes Absolute 0.15 #; Lymphocytes # 0.8 10*3/uL (1.4-4.0); Lymphocytes % 10.8 % (21.3-54.2); Mean Corpuscular HGB Conc 30.2 GM/DL (32-36); Mean Corpuscular Volume 102.2 FL (87-102); Mean Platelet Volume 10.4 FL (9.6-12.0); Monocytes % 6.5 % (1.7-12.7); NRBC # 0.04 10*3/uL; Neutrophils % 79.6 % (38.7-73.9); Platelet Count 170 T/CUMM (130-400); Red Blood Count 2.27 MC/CUMM (3.8-5.5); White Blood Count 7.2 T/CUMM (4-12)
[2019-02-18 02:04] LABS: PT Patient Result 10.5 SECS
[2019-02-18 02:08] LABS: Albumin 2.6 G/DL (3.4-5.0); Bilirubin,Total 0.7 MG/DL (0.2-1.0); Calcium 9.2 MG/DL (8.5-10.1); Osmolality,Calculated 294.7 MOS/KG (273-304); Total Protein 5.6 G/DL (6.4-8.3)
[2019-02-18 02:16] LABS: Apearance,Urine Slightly Hazy (Clear); Bacteria,Urine Occasional /HPF (Few); Bilirubin,Urine Negative (Negative); Blood, Urine Large mg/dL (Negative); Glucose,Urine (UA) Negative (Negative); Ketones,Urine Negative (Negative); Nitrite,Urine Negative (Negative); Protein,Urine 100 MG/DL; RBC,Urine 3862 /HPF (0-4); Urine Color Red (Yellow); Urine Urobilinogen < 2.0 EU/DL (0.2-1.0)
[2019-02-18] MEDS ORDERED: SODIUM CHLORIDE 0.9% 1,000 ML IV STA (04:57)
[2019-02-18] MEDS ORDERED: NICOTINE 21 MG/24 HR PATCH TRANSDERM PRN (05:13)
[2019-02-18] MEDS ORDERED: SODIUM CHLORIDE 0.9% 1,000 ML IV PRN (05:13)
[2019-02-18] MEDS ORDERED: ONDANSETRON 4 MG/2 ML VIAL IV PRN (05:13)
[2019-02-18] MEDS ORDERED: ACETAMINOPHEN 325 MG TABLET PO PRN (05:13)
[2019-02-18] MEDS ORDERED: diphenhydrAMINE CAP 25 MG CAPSULE PO PRN (05:13)
[2019-02-18] MEDS ORDERED: BISACODYL 5 MG TABLET PO PRN (05:13)
[2019-02-18] MEDS ORDERED: SODIUM CHLORIDE 0.9% 1,000 ML IV SCH (05:30)
[2019-02-18] MEDS: SODIUM CHLORIDE 0.9% 1,000 ML IV SCH ×2 (08:10→19:38)
[2019-02-18] MEDS: PANTOPRAZOLE 40 MG TABLET PO SCH (12:16)
[2019-02-18 12:35] LABS: Hematocrit 29.3 VOL% (35.7-47.0)
[2019-02-18 13:15] LABS: ABG Base Excess 13.4 MMOL/L (-2.5-2.5); ABG HCO3 36.6 MMOL/L (20-26); ABG Oxygen Saturation 65.7 % (95-100); ABG PH 7.352 (7.35-7.45); ABG TCO2 38.9 MMOL/L (23-27)
[2019-02-18 13:17] LABS: ABG PCO2 75.5 MM HG (35-48); ABG PO2 37.2 MM HG (80-95)
[2019-02-18 15:06] LABS: ABG Base Excess 13.1 MMOL/L (-2.5-2.5); ABG HCO3 36.8 MMOL/L (20-26); ABG Oxygen Saturation 93.4 % (95-100); ABG PCO2 64.8 MM HG (35-48); ABG PH 7.401 (7.35-7.45); ABG PO2 66.7 MM HG (80-95); ABG TCO2 37.2 MMOL/L (23-27)
[2019-02-19] MEDS: MORPHINE 4 MG/1 ML VIAL IV PRN ×2 (04:44→19:49)
[2019-02-19] MEDS: SODIUM CHLORIDE 0.9% 1,000 ML IV SCH ×2 (08:03→21:23)
[2019-02-19] MEDS: PANTOPRAZOLE 40 MG TABLET PO SCH (08:39)
[2019-02-19] MEDS ORDERED: NITROGLYCERIN SL 0.4 MG TABLET SL PRN (15:20)
[2019-02-19] MEDS ORDERED: ALBUTEROL 1.25 MG/3 ML NEB RESP TX PRN (15:20)
[2019-02-19] MEDS: ALBUTEROL/IPRATROPIUM 3 ML NEB RESP TX SCH (18:30)
[2019-02-19] MEDS: DONEPEZIL 5 MG TABLET PO SCH (20:37)
[2019-02-19] MEDS: OXYBUTYNIN 5 MG TABLET PO SCH (20:37)
[2019-02-19] MEDS: CARVEDILOL 12.5 MG TABLET PO SCH (20:37)
[2019-02-19] MEDS: ATORVASTATIN 40 MG TABLET PO SCH (20:37)
[2019-02-19] MEDS: MENTHOL/ZINC OXIDE OINT 71 GM JAR TOP SCH (21:40)
[2019-02-20] MEDS: ALBUTEROL/IPRATROPIUM 3 ML NEB RESP TX SCH ×4 (00:05→18:45)
[2019-02-20] MEDS: MORPHINE 4 MG/1 ML VIAL IV PRN ×2 (01:10→19:52)
[2019-02-20 05:41] LABS: Basophils % 0.5 % (0.0-0.8); Eosinophils # 0.2 10*3/uL (0.0-0.87); Eosinophils % 2.3 % (0.00-10.9); Hematocrit 25.6 VOL% (35.7-47.0); Hemoglobin 7.7 GM/DL (12.0-16.0); Immature Granulocytes % 1.4 %; Immature Granulocytes Absolute 0.11 #; Lymphocytes # 1.1 10*3/uL (1.4-4.0); Lymphocytes % 13.7 % (21.3-54.2); Mean Corpuscular HGB Conc 30.1 GM/DL (32-36); Mean Corpuscular Volume 100.4 FL (87-102); Mean Platelet Volume 10.1 FL (9.6-12.0); Monocytes % 6.6 % (1.7-12.7); Neutrophils % 75.5 % (38.7-73.9); Platelet Count 145 T/CUMM (130-400); Red Blood Count 2.55 MC/CUMM (3.8-5.5); Red Cell Distribution Width 17.5 % (9.3-17.3); White Blood Count 7.7 T/CUMM (4-12)
[2019-02-20 06:10] LABS: Calcium 8.5 MG/DL (8.5-10.1); Osmolality,Calculated 291.6 MOS/KG (273-304)
[2019-02-20] MEDS: LORATADINE 10 MG TABLET PO SCH (09:18)
[2019-02-20] MEDS: PANTOPRAZOLE 40 MG TABLET PO SCH (09:18)
[2019-02-20] MEDS: OXYBUTYNIN 5 MG TABLET PO SCH ×2 (09:18→21:47)
[2019-02-20] MEDS: FOLIC ACID 1 MG TABLET PO SCH (09:18)
[2019-02-20] MEDS: CARVEDILOL 12.5 MG TABLET PO SCH ×2 (09:18→21:47)
[2019-02-20] MEDS: amLODIPine 2.5 MG TABLET PO SCH (09:18)
[2019-02-20] MEDS: MULTIVITAMIN (INTRINSIC) CAPSULE PO SCH (09:18)
[2019-02-20] MEDS: MENTHOL/ZINC OXIDE OINT 71 GM JAR TOP SCH ×2 (09:18→21:47)
[2019-02-20] MEDS: SODIUM CHLORIDE 0.9% 1,000 ML IV SCH (10:20)
[2019-02-20] MEDS: ATORVASTATIN 40 MG TABLET PO SCH (21:47)
[2019-02-20] MEDS: DONEPEZIL 5 MG TABLET PO SCH (21:47)
[2019-02-21] MEDS: ALBUTEROL/IPRATROPIUM 3 ML NEB RESP TX SCH ×4 (00:25→19:51)
[2019-02-21 05:27] LABS: Basophils % 0.4 % (0.0-0.8); Eosinophils # 0.2 10*3/uL (0.0-0.87); Eosinophils % 3.1 % (0.00-10.9); Hemoglobin 7.3 GM/DL (12.0-16.0); Immature Granulocytes % 1.3 %; Lymphocytes # 0.9 10*3/uL (1.4-4.0); Lymphocytes % 12.6 % (21.3-54.2); Mean Corpuscular HGB Conc 29.2 GM/DL (32-36); Mean Corpuscular Volume 101.2 FL (87-102); Mean Platelet Volume 10.6 FL (9.6-12.0); Monocytes % 6.9 % (1.7-12.7); Neutrophils % 75.7 % (38.7-73.9); Platelet Count 150 T/CUMM (130-400); Red Blood Count 2.47 MC/CUMM (3.8-5.5); Red Cell Distribution Width 16.8 % (9.3-17.3); White Blood Count 7.5 T/CUMM (4-12)
[2019-02-21 06:00] LABS: Calcium 8.8 MG/DL (8.5-10.1); Osmolality,Calculated 293.4 MOS/KG (273-304)
[2019-02-21] MEDS: LORATADINE 10 MG TABLET PO SCH (09:54)
[2019-02-21] MEDS: MULTIVITAMIN (INTRINSIC) CAPSULE PO SCH (09:54)
[2019-02-21] MEDS: CARVEDILOL 12.5 MG TABLET PO SCH ×2 (09:54→22:09)
[2019-02-21] MEDS: PANTOPRAZOLE 40 MG TABLET PO SCH (09:54)
[2019-02-21] MEDS: FOLIC ACID 1 MG TABLET PO SCH (09:55)
[2019-02-21] MEDS: OXYBUTYNIN 5 MG TABLET PO SCH ×2 (09:55→22:09)
[2019-02-21] MEDS: amLODIPine 2.5 MG TABLET PO SCH (09:55)
[2019-02-21] MEDS: MENTHOL/ZINC OXIDE OINT 71 GM JAR TOP SCH ×2 (09:58→22:09)
[2019-02-21] MEDS: DONEPEZIL 5 MG TABLET PO SCH (22:09)
[2019-02-21] MEDS: ATORVASTATIN 40 MG TABLET PO SCH (22:09)
[2019-02-22] MEDS: ALBUTEROL/IPRATROPIUM 3 ML NEB RESP TX SCH ×4 (01:10→19:20)
[2019-02-22] MEDS: MORPHINE 4 MG/1 ML VIAL IV PRN (05:05)
[2019-02-22 06:07] LABS: Calcium 9.1 MG/DL (8.5-10.1); Osmolality,Calculated 290.6 MOS/KG (273-304)
[2019-02-22 06:08] LABS: Basophils % 0.5 % (0.0-0.8); Eosinophils # 0.2 10*3/uL (0.0-0.87); Hematocrit 25.3 VOL% (35.7-47.0); Hemoglobin 7.6 GM/DL (12.0-16.0); Immature Granulocytes % 1.1 %; Immature Granulocytes Absolute 0.08 #; Lymphocytes # 1.1 10*3/uL (1.4-4.0); Lymphocytes % 13.8 % (21.3-54.2); Mean Corpuscular Volume 101.6 FL (87-102); Mean Platelet Volume 10.7 FL (9.6-12.0); Monocytes % 8.3 % (1.7-12.7); Neutrophils % 73.3 % (38.7-73.9); Platelet Count 158 T/CUMM (130-400); Red Blood Count 2.49 MC/CUMM (3.8-5.5); Red Cell Distribution Width 16.2 % (9.3-17.3); White Blood Count 7.6 T/CUMM (4-12)
[2019-02-22] MEDS: FOLIC ACID 1 MG TABLET PO SCH (09:48)
[2019-02-22] MEDS: amLODIPine 2.5 MG TABLET PO SCH (09:48)
[2019-02-22] MEDS: CARVEDILOL 12.5 MG TABLET PO SCH ×2 (09:48→21:57)
[2019-02-22] MEDS: PANTOPRAZOLE 40 MG TABLET PO SCH (09:49)
[2019-02-22] MEDS: LORATADINE 10 MG TABLET PO SCH (09:49)
[2019-02-22] MEDS: MULTIVITAMIN (INTRINSIC) CAPSULE PO SCH (09:49)
[2019-02-22] MEDS: OXYBUTYNIN 5 MG TABLET PO SCH ×2 (09:49→21:57)
[2019-02-22] MEDS: MENTHOL/ZINC OXIDE OINT 71 GM JAR TOP SCH ×2 (09:51→21:58)
[2019-02-22] MEDS ORDERED: MORPHINE 4 MG/1 ML VIAL IV PRN (16:37)
[2019-02-22] MEDS ORDERED: oxyCODONE IR 5 MG TABLET PO PRN (16:38)
[2019-02-22] MEDS ORDERED: traZODone 50 MG TABLET PO PRN (18:58)
[2019-02-22] MEDS ORDERED: traZODone 50 MG TABLET PO SCH (21:00)
[2019-02-22] MEDS: DONEPEZIL 5 MG TABLET PO SCH (21:57)
[2019-02-22] MEDS: ATORVASTATIN 40 MG TABLET PO SCH (21:57)
[2019-02-23] MEDS: ALBUTEROL/IPRATROPIUM 3 ML NEB RESP TX SCH ×3 (01:11→13:55)
[2019-02-23 05:22] LABS: Basophils # 0.1 10*3/uL (0.0-0.2); Basophils % 0.8 % (0.0-0.8); Eosinophils # 0.2 10*3/uL (0.0-0.87); Eosinophils % 2.8 % (0.00-10.9); Hematocrit 24.7 VOL% (35.7-47.0); Hemoglobin 7.4 GM/DL (12.0-16.0); Immature Granulocytes Absolute 0.08 #; Lymphocytes # 1.1 10*3/uL (1.4-4.0); Lymphocytes % 13.3 % (21.3-54.2); Mean Platelet Volume 10.6 FL (9.6-12.0); Monocytes % 8.2 % (1.7-12.7); Neutrophils % 73.9 % (38.7-73.9); Platelet Count 172 T/CUMM (130-400); Red Blood Count 2.47 MC/CUMM (3.8-5.5); Red Cell Distribution Width 15.9 % (9.3-17.3); White Blood Count 8.3 T/CUMM (4-12)
[2019-02-23 05:51] LABS: Calcium 9.2 MG/DL (8.5-10.1); Osmolality,Calculated 287.7 MOS/KG (273-304)
[2019-02-23] MEDS ORDERED: LIDOCAINE 2% TOP JELLY 20 ML VIAL INTRAURETH ONE (07:44)
[2019-02-23] MEDS: SODIUM CHLORIDE 0.9% 1,000 ML IV SCH (07:47)
[2019-02-23] MEDS: FOLIC ACID 1 MG TABLET PO SCH (09:32)
[2019-02-23] MEDS: LORATADINE 10 MG TABLET PO SCH (09:32)
[2019-02-23] MEDS: CARVEDILOL 12.5 MG TABLET PO SCH (09:32)
[2019-02-23] MEDS: OXYBUTYNIN 5 MG TABLET PO SCH (09:32)
[2019-02-23] MEDS: amLODIPine 2.5 MG TABLET PO SCH (09:32)
[2019-02-23] MEDS: PANTOPRAZOLE 40 MG TABLET PO SCH (09:32)
[2019-02-23] MEDS: MULTIVITAMIN (INTRINSIC) CAPSULE PO SCH (09:32)
[2019-02-23] MEDS: MENTHOL/ZINC OXIDE OINT 71 GM JAR TOP SCH (09:32)
[2019-02-23 12:05] VITALS: BP 126/67
== END 2019-02-23 17:03 | disposition home health service (06) | DRG 686 ==
LOC: EDUNIT# → EDBD → N.ED 01:03 → SUATTDRO 05:13 → N.EDINP 05:13 → N.5E 05:46
PROVIDERS: ADMIT Internal Medicine Cardiovascular Disease; ATTEND Internal Medicine

== ENCOUNTER 2019-02-24 16:23 | Inpatient (IN) ==
[2019-02-24 17:12] LABS: Basophils # 0.1 10*3/uL (0.0-0.2); Basophils % 0.6 % (0.0-0.8); Eosinophils # 0.1 10*3/uL (0.0-0.87); Eosinophils % 1.6 % (0.00-10.9); Hematocrit 24.3 VOL% (35.7-47.0); Hemoglobin 7.3 GM/DL (12.0-16.0); Immature Granulocytes % 1.2 %; Lymphocytes # 0.9 10*3/uL (1.4-4.0); Lymphocytes % 10.6 % (21.3-54.2); Mean Corpuscular Volume 98.8 FL (87-102); Mean Platelet Volume 10.6 FL (9.6-12.0); Monocytes % 8.3 % (1.7-12.7); NRBC # 0.02 10*3/uL; Neutrophils % 77.7 % (38.7-73.9); Platelet Count 205 T/CUMM (130-400); Red Blood Count 2.46 MC/CUMM (3.8-5.5); Red Cell Distribution Width 15.9 % (9.3-17.3); White Blood Count 8.3 T/CUMM (4-12)
[2019-02-24 17:29] LABS: Albumin 2.5 G/DL (3.4-5.0); Bilirubin,Total 0.8 MG/DL (0.2-1.0); Calcium 8.8 MG/DL (8.5-10.1); Osmolality,Calculated 286.1 MOS/KG (273-304); Total Protein 5.3 G/DL (6.4-8.3)
[2019-02-24 17:47] LABS: Apearance,Urine CLOUDY (Clear); Bacteria,Urine Few /HPF (Few); Bilirubin,Urine Negative (Negative); Blood, Urine Large mg/dL (Negative); Glucose,Urine (UA) Negative (Negative); Hyaline Casts,Urine 10 /LPF (0-3); Ketones,Urine Negative (Negative); Mucus,Urine Occasional /LPF (Occasional); Nitrite,Urine Positive (Negative); Protein,Urine 100 MG/DL; RBC,Urine 66 /HPF (0-4); Squamous Epithelial Cell,Urine Occasional /HPF (0-10); Urine Color Yellow (Yellow); Urine Specific Gravity 1.011 (1.001-1.035); WBC,Urine 139 /HPF (0-6)
[2019-02-24] MEDS ORDERED: cefTRIAXone 1,000 MG in SODIUM CHLORIDE 0.9% 100 ML IV STA (18:02)
[2019-02-24] MEDS ORDERED: diphenhydrAMINE CAP 25 MG CAPSULE PO PRN (20:37)
[2019-02-24] MEDS ORDERED: ONDANSETRON 4 MG/2 ML VIAL IV PRN (20:37)
[2019-02-24] MEDS ORDERED: DOCUSATE SODIUM 100 MG CAPSULE PO PRN (20:37)
[2019-02-24] MEDS ORDERED: ACETAMINOPHEN 325 MG TABLET PO PRN (20:37)
[2019-02-24] MEDS ORDERED: GLUCAGON 1 MG VIAL IM PRN (20:37)
[2019-02-24] MEDS ORDERED: DEXTROSE 50% 25 GM/50 ML VIAL IV PRN (20:37)
[2019-02-24] MEDS ORDERED: ALBUTEROL 1.25 MG/3 ML NEB RESP TX PRN (22:39)
[2019-02-24] MEDS ORDERED: NITROGLYCERIN SL 0.4 MG TABLET SL PRN (22:39)
[2019-02-25] MEDS: ATORVASTATIN 40 MG TABLET PO SCH ×2 (00:13→21:10)
[2019-02-25] MEDS: INSULIN REGULAR 100 UNIT/ML SUBCUT SCH ×5 (00:13→21:10)
[2019-02-25] MEDS: OXYBUTYNIN 5 MG TABLET PO SCH ×3 (00:13→21:10)
[2019-02-25] MEDS: DONEPEZIL 5 MG TABLET PO SCH ×2 (00:13→21:10)
[2019-02-25] MEDS: CARVEDILOL 12.5 MG TABLET PO SCH ×3 (00:13→21:10)
[2019-02-25] MEDS: ALBUTEROL/IPRATROPIUM 3 ML NEB RESP TX SCH ×4 (01:38→19:20)
[2019-02-25 05:36] LABS: Basophils # 0.1 10*3/uL (0.0-0.2); Basophils % 0.7 % (0.0-0.8); Eosinophils # 0.1 10*3/uL (0.0-0.87); Eosinophils % 1.6 % (0.00-10.9); Hematocrit 22.1 VOL% (35.7-47.0); Hemoglobin 6.7 GM/DL (12.0-16.0); Immature Granulocytes Absolute 0.07 #; Lymphocytes # 0.8 10*3/uL (1.4-4.0); Lymphocytes % 12.1 % (21.3-54.2); Mean Corpuscular HGB Conc 30.3 GM/DL (32-36); Mean Corpuscular Volume 99.5 FL (87-102); Monocytes % 7.6 % (1.7-12.7); NRBC # 0.02 10*3/uL; Platelet Count 193 T/CUMM (130-400); Red Blood Count 2.22 MC/CUMM (3.8-5.5); Red Cell Distribution Width 15.9 % (9.3-17.3); White Blood Count 6.7 T/CUMM (4-12)
[2019-02-25 06:04] LABS: Albumin 2.2 G/DL (3.4-5.0); Bilirubin,Total 0.7 MG/DL (0.2-1.0); Calcium 9.1 MG/DL (8.5-10.1); Total Protein 5.3 G/DL (6.4-8.3)
[2019-02-25] MEDS: FUROSEMIDE 40 MG/4 ML VIAL IV SCH ×2 (08:31→17:53)
[2019-02-25] MEDS: MULTIVITAMIN (CENTRUM) TABLET PO SCH (08:54)
[2019-02-25] MEDS: ASPIRIN EC 81 MG TABLET PO SCH (08:55)
[2019-02-25] MEDS: PANTOPRAZOLE 40 MG TABLET PO SCH (08:55)
[2019-02-25] MEDS: MULTIVITAMIN (INTRINSIC) CAPSULE PO SCH (08:55)
[2019-02-25] MEDS: amLODIPine 2.5 MG TABLET PO SCH (08:55)
[2019-02-25] MEDS: LORATADINE 10 MG TABLET PO SCH (08:55)
[2019-02-25] MEDS: FOLIC ACID 1 MG TABLET PO SCH (08:55)
[2019-02-25] MEDS ORDERED: SODIUM CHLORIDE 0.9% 1,000 ML IV PRN (14:13)
[2019-02-25] MEDS: cefTRIAXone 1,000 MG in SYRINGE 1 EACH IV SCH (17:53)
[2019-02-26] MEDS: ALBUTEROL/IPRATROPIUM 3 ML NEB RESP TX SCH ×4 (00:07→20:16)
[2019-02-26 01:13] LABS: Basophils # 0.1 10*3/uL (0.0-0.2); Eosinophils # 0.3 10*3/uL (0.0-0.87); Eosinophils % 3.7 % (0.00-10.9); Hematocrit 29.8 VOL% (35.7-47.0); Hemoglobin 9.1 GM/DL (12.0-16.0); Immature Granulocytes % 0.7 %; Immature Granulocytes Absolute 0.05 #; Lymphocytes % 14.2 % (21.3-54.2); Mean Corpuscular HGB Conc 30.5 GM/DL (32-36); Mean Platelet Volume 10.6 FL (9.6-12.0); Monocytes % 11.2 % (1.7-12.7); NRBC # 0.02 10*3/uL; Neutrophils % 69.2 % (38.7-73.9); Platelet Count 195 T/CUMM (130-400); Red Blood Count 3.04 MC/CUMM (3.8-5.5); Red Cell Distribution Width 16.6 % (9.3-17.3); White Blood Count 7.1 T/CUMM (4-12)
[2019-02-26] MEDS: INSULIN REGULAR 100 UNIT/ML SUBCUT SCH ×4 (07:30→21:56)
[2019-02-26] MEDS: CARVEDILOL 12.5 MG TABLET PO SCH ×2 (09:15→21:45)
[2019-02-26] MEDS: ASPIRIN EC 81 MG TABLET PO SCH (09:15)
[2019-02-26] MEDS: PANTOPRAZOLE 40 MG TABLET PO SCH (09:15)
[2019-02-26] MEDS: LORATADINE 10 MG TABLET PO SCH (09:15)
[2019-02-26] MEDS: MULTIVITAMIN (INTRINSIC) CAPSULE PO SCH (09:15)
[2019-02-26] MEDS: FOLIC ACID 1 MG TABLET PO SCH (09:15)
[2019-02-26] MEDS: OXYBUTYNIN 5 MG TABLET PO SCH ×2 (09:15→21:45)
[2019-02-26] MEDS: FUROSEMIDE 40 MG/4 ML VIAL IV SCH ×2 (09:15→16:57)
[2019-02-26] MEDS: amLODIPine 2.5 MG TABLET PO SCH (09:15)
[2019-02-26] MEDS: MULTIVITAMIN (CENTRUM) TABLET PO SCH (09:15)
[2019-02-26] MEDS: MENTHOL/ZINC OXIDE OINT 71 GM JAR TOP SCH (16:57)
[2019-02-26] MEDS: cefTRIAXone 1,000 MG in SYRINGE 1 EACH IV SCH (18:03)
[2019-02-26] MEDS: ATORVASTATIN 40 MG TABLET PO SCH (21:45)
[2019-02-26] MEDS: DONEPEZIL 5 MG TABLET PO SCH (21:46)
[2019-02-27] MEDS: ALBUTEROL/IPRATROPIUM 3 ML NEB RESP TX SCH ×4 (01:54→19:22)
[2019-02-27] MEDS: INSULIN REGULAR 100 UNIT/ML SUBCUT SCH ×4 (07:30→22:14)
[2019-02-27] MEDS: MULTIVITAMIN (CENTRUM) TABLET PO SCH (09:43)
[2019-02-27] MEDS: ASPIRIN EC 81 MG TABLET PO SCH (09:43)
[2019-02-27] MEDS: PANTOPRAZOLE 40 MG TABLET PO SCH (09:43)
[2019-02-27] MEDS: MULTIVITAMIN (INTRINSIC) CAPSULE PO SCH (09:43)
[2019-02-27] MEDS: LORATADINE 10 MG TABLET PO SCH (09:43)
[2019-02-27] MEDS: OXYBUTYNIN 5 MG TABLET PO SCH ×2 (09:43→22:16)
[2019-02-27] MEDS: FOLIC ACID 1 MG TABLET PO SCH (09:43)
[2019-02-27] MEDS: amLODIPine 2.5 MG TABLET PO SCH (09:44)
[2019-02-27] MEDS: FUROSEMIDE 40 MG/4 ML VIAL IV SCH ×2 (09:44→15:21)
[2019-02-27] MEDS: CARVEDILOL 12.5 MG TABLET PO SCH ×2 (09:44→22:16)
[2019-02-27] MEDS: MENTHOL/ZINC OXIDE OINT 71 GM JAR TOP SCH (09:53)
[2019-02-27] MEDS: cefTRIAXone 1,000 MG in SYRINGE 1 EACH IV SCH (18:06)
[2019-02-27] MEDS: DONEPEZIL 5 MG TABLET PO SCH (22:15)
[2019-02-27] MEDS: ATORVASTATIN 40 MG TABLET PO SCH (22:16)
[2019-02-28] MEDS: ALBUTEROL/IPRATROPIUM 3 ML NEB RESP TX SCH ×4 (00:55→19:05)
[2019-02-28 04:48] LABS: Basophils # 0.1 10*3/uL (0.0-0.2); Basophils % 0.7 % (0.0-0.8); Eosinophils # 0.2 10*3/uL (0.0-0.87); Eosinophils % 2.1 % (0.00-10.9); Hematocrit 30.6 VOL% (35.7-47.0); Hemoglobin 9.4 GM/DL (12.0-16.0); Immature Granulocytes % 0.8 %; Immature Granulocytes Absolute 0.06 #; Lymphocytes # 1.2 10*3/uL (1.4-4.0); Lymphocytes % 17.6 % (21.3-54.2); Mean Corpuscular HGB Conc 30.7 GM/DL (32-36); Mean Corpuscular Volume 97.5 FL (87-102); Mean Platelet Volume 10.6 FL (9.6-12.0); Monocytes % 13.2 % (1.7-12.7); Neutrophils % 65.6 % (38.7-73.9); Platelet Count 226 T/CUMM (130-400); Red Blood Count 3.14 MC/CUMM (3.8-5.5); Red Cell Distribution Width 15.5 % (9.3-17.3); White Blood Count 7.1 T/CUMM (4-12)
[2019-02-28 05:13] LABS: Calcium 8.6 MG/DL (8.5-10.1); Osmolality,Calculated 285.8 MOS/KG (273-304)
[2019-02-28] MEDS: INSULIN REGULAR 100 UNIT/ML SUBCUT SCH ×4 (07:51→21:20)
[2019-02-28] MEDS: FUROSEMIDE 40 MG/4 ML VIAL IV SCH ×2 (08:31→17:30)
[2019-02-28] MEDS: ASPIRIN EC 81 MG TABLET PO SCH (08:32)
[2019-02-28] MEDS: LORATADINE 10 MG TABLET PO SCH (08:32)
[2019-02-28] MEDS: amLODIPine 2.5 MG TABLET PO SCH (08:32)
[2019-02-28] MEDS: MULTIVITAMIN (CENTRUM) TABLET PO SCH (08:32)
[2019-02-28] MEDS: MULTIVITAMIN (INTRINSIC) CAPSULE PO SCH (08:32)
[2019-02-28] MEDS: CARVEDILOL 12.5 MG TABLET PO SCH ×2 (08:32→20:22)
[2019-02-28] MEDS: OXYBUTYNIN 5 MG TABLET PO SCH ×2 (08:32→20:22)
[2019-02-28] MEDS: PANTOPRAZOLE 40 MG TABLET PO SCH (08:32)
[2019-02-28] MEDS: FOLIC ACID 1 MG TABLET PO SCH (08:32)
[2019-02-28] MEDS: MENTHOL/ZINC OXIDE OINT 71 GM JAR TOP SCH (08:33)
[2019-02-28] MEDS: cefTRIAXone 1,000 MG in SYRINGE 1 EACH IV SCH (17:40)
[2019-02-28] MEDS: ATORVASTATIN 40 MG TABLET PO SCH (20:22)
[2019-02-28] MEDS: DONEPEZIL 5 MG TABLET PO SCH (20:22)
[2019-03-01] MEDS: ALBUTEROL/IPRATROPIUM 3 ML NEB RESP TX SCH ×4 (02:29→20:12)
[2019-03-01 05:16] LABS: Basophils # 0.1 10*3/uL (0.0-0.2); Basophils % 0.7 % (0.0-0.8); Eosinophils # 0.2 10*3/uL (0.0-0.87); Eosinophils % 2.5 % (0.00-10.9); Hematocrit 30.3 VOL% (35.7-47.0); Hemoglobin 9.4 GM/DL (12.0-16.0); Immature Granulocytes % 0.8 %; Immature Granulocytes Absolute 0.06 #; Lymphocytes # 1.2 10*3/uL (1.4-4.0); Lymphocytes % 16.1 % (21.3-54.2); Mean Corpuscular Volume 96.2 FL (87-102); Mean Platelet Volume 10.6 FL (9.6-12.0); Monocytes % 11.1 % (1.7-12.7); Neutrophils % 68.8 % (38.7-73.9); Platelet Count 221 T/CUMM (130-400); Red Blood Count 3.15 MC/CUMM (3.8-5.5); White Blood Count 7.3 T/CUMM (4-12)
[2019-03-01 06:27] LABS: Blood Urea Nitrogen 10 MG/DL (7-18); Calcium 8.9 MG/DL (8.5-10.1); Glucose 108 MG/DL (74-106); Osmolality,Calculated 282.1 MOS/KG (273-304)
[2019-03-01] MEDS: INSULIN REGULAR 100 UNIT/ML SUBCUT SCH ×4 (08:30→21:20)
[2019-03-01] MEDS: CARVEDILOL 12.5 MG TABLET PO SCH ×2 (08:40→21:20)
[2019-03-01] MEDS: amLODIPine 2.5 MG TABLET PO SCH (08:40)
[2019-03-01] MEDS: FUROSEMIDE 40 MG/4 ML VIAL IV SCH ×2 (09:15→15:18)
[2019-03-01] MEDS: MENTHOL/ZINC OXIDE OINT 71 GM JAR TOP SCH (09:16)
[2019-03-01] MEDS: LORATADINE 10 MG TABLET PO SCH (09:16)
[2019-03-01] MEDS: MULTIVITAMIN (CENTRUM) TABLET PO SCH (09:16)
[2019-03-01] MEDS: OXYBUTYNIN 5 MG TABLET PO SCH ×2 (09:16→21:20)
[2019-03-01] MEDS: ASPIRIN EC 81 MG TABLET PO SCH (09:16)
[2019-03-01] MEDS: MULTIVITAMIN (INTRINSIC) CAPSULE PO SCH (09:17)
[2019-03-01] MEDS: PANTOPRAZOLE 40 MG TABLET PO SCH (09:17)
[2019-03-01] MEDS: FOLIC ACID 1 MG TABLET PO SCH (09:17)
[2019-03-01] MEDS ORDERED: NEOMYCIN/POLYMYXIN IRRIG SOLN 1 ML AMP BLADDERIRR ONE (09:45)
[2019-03-01] MEDS ORDERED: LACTATED RINGERS 1,000 ML IV SCH (10:00)
[2019-03-01] MEDS ORDERED: NEOSTIGMINE 10 MG/10 ML VIAL IV ONE (10:10)
[2019-03-01] MEDS ORDERED: PHENYLEPHRINE DRIP 20 MG/250 ML PREMIX IV ONE (12:11)
[2019-03-01] MEDS ORDERED: fentaNYL 100 MCG/2 ML VIAL ONE (12:11)
[2019-03-01] MEDS ORDERED: PROPOFOL 200 MG/20 ML VIAL IV ONE (12:11)
[2019-03-01] MEDS ORDERED: GLYCOPYRROLATE 0.4 MG/2 ML VIAL ONE (12:12)
[2019-03-01] MEDS ORDERED: NEOSTIGMINE 10 MG/10 ML VIAL ONE (12:12)
[2019-03-01] MEDS ORDERED: DEXAMETHASONE 4 MG/1 ML VIAL ONE (12:12)
[2019-03-01] MEDS ORDERED: ROCURONIUM 100 MG/10 ML VIAL IV ONE (12:12)
[2019-03-01] MEDS ORDERED: SODIUM CHLORIDE 0.9% 250 ML IV ONE (12:12)
[2019-03-01] MEDS ORDERED: ACETAMINOPHEN 1,000 MG/100 ML VIAL IV ONE (12:12)
[2019-03-01] MEDS ORDERED: PHENYLEPHRINE 1 MG/10 ML SYRINGE IV ONE (12:12)
[2019-03-01 12:36] LABS: Allen Test Positive; Pt O2 Delivery Device BIPAP
[2019-03-01 12:37] LABS: ABG Base Excess 18.6 MMOL/L (-2.5-2.5); ABG HCO3 49.4 MMOL/L (20-26); ABG Oxygen Saturation 96.6 % (95-100); ABG PH 7.276 (7.35-7.45); ABG TCO2 52.7 MMOL/L (23-27)
[2019-03-01 12:39] LABS: ABG PCO2 108.5 MM HG (35-48)
[2019-03-01] MEDS: cefTRIAXone 1,000 MG in SYRINGE 1 EACH IV SCH (17:56)
[2019-03-01] MEDS: ATORVASTATIN 40 MG TABLET PO SCH (21:20)
[2019-03-01] MEDS: DONEPEZIL 5 MG TABLET PO SCH (21:20)
[2019-03-02] MEDS: ALBUTEROL/IPRATROPIUM 3 ML NEB RESP TX SCH ×4 (00:51→19:49)
[2019-03-02 03:22] LABS: Basophils % 0.3 % (0.0-0.8); Hematocrit 32.3 VOL% (35.7-47.0); Hemoglobin 9.8 GM/DL (12.0-16.0); Immature Granulocytes % 0.6 %; Immature Granulocytes Absolute 0.04 #; Lymphocytes # 0.7 10*3/uL (1.4-4.0); Lymphocytes % 9.8 % (21.3-54.2); Mean Corpuscular HGB Conc 30.3 GM/DL (32-36); Mean Platelet Volume 10.6 FL (9.6-12.0); Monocytes % 5.1 % (1.7-12.7); Neutrophils % 84.2 % (38.7-73.9); Platelet Count 228 T/CUMM (130-400); Red Blood Count 3.33 MC/CUMM (3.8-5.5); Red Cell Distribution Width 14.5 % (9.3-17.3); White Blood Count 6.9 T/CUMM (4-12)
[2019-03-02 03:46] LABS: Blood Urea Nitrogen 18 MG/DL (7-18); Calcium 9.2 MG/DL (8.5-10.1); Glucose 115 MG/DL (74-106); Osmolality,Calculated 281.4 MOS/KG (273-304)
[2019-03-02] MEDS ORDERED: MAGNESIUM SULF RIDER 2 GM in PREMIX 1 EACH IV PRN (06:20)
[2019-03-02] MEDS: INSULIN REGULAR 100 UNIT/ML SUBCUT SCH ×4 (07:38→22:29)
[2019-03-02] MEDS: FUROSEMIDE 40 MG/4 ML VIAL IV SCH ×2 (08:55→18:13)
[2019-03-02] MEDS: MULTIVITAMIN (INTRINSIC) CAPSULE PO SCH (08:57)
[2019-03-02] MEDS: MULTIVITAMIN (CENTRUM) TABLET PO SCH (08:57)
[2019-03-02] MEDS: FOLIC ACID 1 MG TABLET PO SCH (08:58)
[2019-03-02] MEDS: amLODIPine 2.5 MG TABLET PO SCH (08:58)
[2019-03-02] MEDS: OXYBUTYNIN 5 MG TABLET PO SCH ×2 (08:58→22:44)
[2019-03-02] MEDS: PANTOPRAZOLE 40 MG TABLET PO SCH (08:58)
[2019-03-02] MEDS: CARVEDILOL 12.5 MG TABLET PO SCH ×2 (08:58→22:44)
[2019-03-02] MEDS: ASPIRIN EC 81 MG TABLET PO SCH (08:58)
[2019-03-02] MEDS: LORATADINE 10 MG TABLET PO SCH (08:58)
[2019-03-02] MEDS: CIPROFLOXACIN 500 MG TABLET PO SCH ×2 (08:59→22:43)
[2019-03-02 11:08] LABS: ABG Base Excess 19.2 MMOL/L (-2.5-2.5); ABG HCO3 47.6 MMOL/L (20-26); ABG Oxygen Saturation 93.9 % (95-100); ABG PO2 71.3 MM HG (80-95)
[2019-03-02 11:10] LABS: ABG PCO2 80.4 MM HG (35-48)
[2019-03-02] MEDS ORDERED: POTASSIUM CHLORIDE 10 MEQ TABLET PO ONE (12:00)
[2019-03-02] MEDS: MENTHOL/ZINC OXIDE OINT 71 GM JAR TOP SCH (13:10)
[2019-03-02] MEDS: DONEPEZIL 5 MG TABLET PO SCH (22:44)
[2019-03-02] MEDS: ATORVASTATIN 40 MG TABLET PO SCH (22:44)
[2019-03-03] MEDS: ALBUTEROL/IPRATROPIUM 3 ML NEB RESP TX SCH ×4 (01:01→20:14)
[2019-03-03 03:59] LABS: ABG Base Excess 19.7 MMOL/L (-2.5-2.5); ABG Oxygen Saturation 99.9 % (95-100); ABG PH 7.403 (7.35-7.45); ABG TCO2 44.3 MMOL/L (23-27); Allen Test Positive; Pt O2 Delivery Device BIPAP
[2019-03-03 04:01] LABS: ABG PCO2 77.5 MM HG (35-48)
[2019-03-03 04:35] LABS: Basophils % 0.5 % (0.0-0.8); Eosinophils # 0.1 10*3/uL (0.0-0.87); Eosinophils % 1.6 % (0.00-10.9); Hemoglobin 9.3 GM/DL (12.0-16.0); Immature Granulocytes % 0.3 %; Immature Granulocytes Absolute 0.02 #; Lymphocytes # 0.9 10*3/uL (1.4-4.0); Lymphocytes % 14.4 % (21.3-54.2); Mean Corpuscular Volume 96.5 FL (87-102); Mean Platelet Volume 10.7 FL (9.6-12.0); Monocytes % 10.5 % (1.7-12.7); Neutrophils % 72.7 % (38.7-73.9); Platelet Count 239 T/CUMM (130-400); Red Blood Count 3.11 MC/CUMM (3.8-5.5); Red Cell Distribution Width 14.6 % (9.3-17.3); White Blood Count 6.3 T/CUMM (4-12)
[2019-03-03 04:55] LABS: Calcium 9.1 MG/DL (8.5-10.1); Osmolality,Calculated 282.3 MOS/KG (273-304)
[2019-03-03] MEDS: INSULIN REGULAR 100 UNIT/ML SUBCUT SCH ×4 (08:11→21:41)
[2019-03-03] MEDS: MULTIVITAMIN (INTRINSIC) CAPSULE PO SCH (08:30)
[2019-03-03] MEDS: CIPROFLOXACIN 500 MG TABLET PO SCH ×2 (08:31→21:40)
[2019-03-03] MEDS: MULTIVITAMIN (CENTRUM) TABLET PO SCH (08:31)
[2019-03-03] MEDS: FUROSEMIDE 40 MG/4 ML VIAL IV SCH ×2 (08:31→15:18)
[2019-03-03] MEDS: LORATADINE 10 MG TABLET PO SCH (08:31)
[2019-03-03] MEDS: FOLIC ACID 1 MG TABLET PO SCH (08:31)
[2019-03-03] MEDS: amLODIPine 2.5 MG TABLET PO SCH (08:31)
[2019-03-03] MEDS: ASPIRIN EC 81 MG TABLET PO SCH (08:31)
[2019-03-03] MEDS: OXYBUTYNIN 5 MG TABLET PO SCH ×2 (08:31→21:41)
[2019-03-03] MEDS: CARVEDILOL 12.5 MG TABLET PO SCH ×2 (08:31→21:41)
[2019-03-03] MEDS: PANTOPRAZOLE 40 MG TABLET PO SCH (08:31)
[2019-03-03] MEDS: MENTHOL/ZINC OXIDE OINT 71 GM JAR TOP SCH (09:20)
[2019-03-03 11:39] LABS: Allen Test Positive
[2019-03-03 11:40] LABS: ABG Base Excess 20.4 MMOL/L (-2.5-2.5); ABG HCO3 44.8 MMOL/L (20-26); ABG Oxygen Saturation 95.6 % (95-100); ABG PO2 72.8 MM HG (80-95)
[2019-03-03 11:43] LABS: ABG PCO2 77.5 MM HG (35-48)
[2019-03-03] MEDS: DONEPEZIL 5 MG TABLET PO SCH (21:40)
[2019-03-03] MEDS: ATORVASTATIN 40 MG TABLET PO SCH (21:41)
[2019-03-04] MEDS: ALBUTEROL/IPRATROPIUM 3 ML NEB RESP TX SCH ×4 (00:35→19:14)
[2019-03-04] MEDS: INSULIN REGULAR 100 UNIT/ML SUBCUT SCH ×4 (08:21→21:17)
[2019-03-04] MEDS: amLODIPine 2.5 MG TABLET PO SCH (08:22)
[2019-03-04] MEDS: CARVEDILOL 12.5 MG TABLET PO SCH ×2 (08:22→21:12)
[2019-03-04] MEDS: MULTIVITAMIN (INTRINSIC) CAPSULE PO SCH (08:23)
[2019-03-04] MEDS: MULTIVITAMIN (CENTRUM) TABLET PO SCH (08:23)
[2019-03-04] MEDS: CIPROFLOXACIN 500 MG TABLET PO SCH ×2 (08:23→21:12)
[2019-03-04] MEDS: MENTHOL/ZINC OXIDE OINT 71 GM JAR TOP SCH (08:23)
[2019-03-04] MEDS: LORATADINE 10 MG TABLET PO SCH (08:23)
[2019-03-04] MEDS: FUROSEMIDE 40 MG/4 ML VIAL IV SCH ×2 (08:23→15:11)
[2019-03-04] MEDS: FOLIC ACID 1 MG TABLET PO SCH (08:23)
[2019-03-04] MEDS: ASPIRIN EC 81 MG TABLET PO SCH (08:23)
[2019-03-04] MEDS: PANTOPRAZOLE 40 MG TABLET PO SCH (08:23)
[2019-03-04] MEDS: OXYBUTYNIN 5 MG TABLET PO SCH ×2 (08:23→21:12)
[2019-03-04] MEDS: traZODone 50 MG TABLET PO PRN (21:11)
[2019-03-04] MEDS: ATORVASTATIN 40 MG TABLET PO SCH (21:11)
[2019-03-04] MEDS: DONEPEZIL 5 MG TABLET PO SCH (21:12)
[2019-03-05] MEDS: ALBUTEROL/IPRATROPIUM 3 ML NEB RESP TX SCH ×4 (00:43→18:30)
[2019-03-05 04:59] LABS: Basophils % 0.7 % (0.0-0.8); Eosinophils # 0.3 10*3/uL (0.0-0.87); Eosinophils % 4.4 % (0.00-10.9); Hematocrit 30.1 VOL% (35.7-47.0); Hemoglobin 9.2 GM/DL (12.0-16.0); Immature Granulocytes % 0.7 %; Immature Granulocytes Absolute 0.04 #; Lymphocytes # 1.2 10*3/uL (1.4-4.0); Lymphocytes % 20.4 % (21.3-54.2); Mean Corpuscular HGB Conc 30.6 GM/DL (32-36); Mean Corpuscular Volume 96.8 FL (87-102); Mean Platelet Volume 10.1 FL (9.6-12.0); Monocytes % 10.4 % (1.7-12.7); Neutrophils % 63.4 % (38.7-73.9); Platelet Count 219 T/CUMM (130-400); Red Blood Count 3.11 MC/CUMM (3.8-5.5); Red Cell Distribution Width 14.7 % (9.3-17.3); White Blood Count 5.9 T/CUMM (4-12)
[2019-03-05 08:50] LABS: Blood Urea Nitrogen 13 MG/DL (7-18); Glucose 100 MG/DL (74-106); Osmolality,Calculated 285.8 MOS/KG (273-304)
[2019-03-05] MEDS: INSULIN REGULAR 100 UNIT/ML SUBCUT SCH ×4 (08:54→22:18)
[2019-03-05] MEDS: PANTOPRAZOLE 40 MG TABLET PO SCH (08:55)
[2019-03-05] MEDS: CIPROFLOXACIN 500 MG TABLET PO SCH (08:55)
[2019-03-05] MEDS: FUROSEMIDE 40 MG/4 ML VIAL IV SCH ×2 (08:55→16:36)
[2019-03-05] MEDS: MENTHOL/ZINC OXIDE OINT 71 GM JAR TOP SCH (08:55)
[2019-03-05] MEDS: CARVEDILOL 12.5 MG TABLET PO SCH ×2 (08:55→22:14)
[2019-03-05] MEDS: LORATADINE 10 MG TABLET PO SCH (08:55)
[2019-03-05] MEDS: MULTIVITAMIN (INTRINSIC) CAPSULE PO SCH (08:55)
[2019-03-05] MEDS: FOLIC ACID 1 MG TABLET PO SCH (08:55)
[2019-03-05] MEDS: MULTIVITAMIN (CENTRUM) TABLET PO SCH (08:55)
[2019-03-05] MEDS: OXYBUTYNIN 5 MG TABLET PO SCH ×2 (08:55→22:14)
[2019-03-05] MEDS: amLODIPine 2.5 MG TABLET PO SCH (08:55)
[2019-03-05] MEDS: ASPIRIN EC 81 MG TABLET PO SCH (08:55)
[2019-03-05] MEDS: AMOXICILLIN 500 MG CAPSULE PO SCH ×2 (13:11→16:36)
[2019-03-05] MEDS ORDERED: POTASSIUM CHLORIDE 20 MEQ TABLET PO ONE (13:31)
[2019-03-05] MEDS: ATORVASTATIN 40 MG TABLET PO SCH (22:14)
[2019-03-05] MEDS: traZODone 50 MG TABLET PO PRN (22:14)
[2019-03-05] MEDS: DONEPEZIL 5 MG TABLET PO SCH (22:14)
[2019-03-06] MEDS: ALBUTEROL/IPRATROPIUM 3 ML NEB RESP TX SCH ×2 (00:15→07:55)
[2019-03-06] MEDS: INSULIN REGULAR 100 UNIT/ML SUBCUT SCH ×2 (09:20→13:16)
[2019-03-06] MEDS: CARVEDILOL 12.5 MG TABLET PO SCH (09:21)
[2019-03-06] MEDS: LORATADINE 10 MG TABLET PO SCH (09:21)
[2019-03-06] MEDS: AMOXICILLIN 500 MG CAPSULE PO SCH ×2 (09:21→13:17)
[2019-03-06] MEDS: OXYBUTYNIN 5 MG TABLET PO SCH (09:21)
[2019-03-06] MEDS: amLODIPine 2.5 MG TABLET PO SCH (09:21)
[2019-03-06] MEDS: FOLIC ACID 1 MG TABLET PO SCH (09:21)
[2019-03-06] MEDS: MULTIVITAMIN (INTRINSIC) CAPSULE PO SCH (09:21)
[2019-03-06] MEDS: ASPIRIN EC 81 MG TABLET PO SCH (09:21)
[2019-03-06] MEDS: MULTIVITAMIN (CENTRUM) TABLET PO SCH (09:21)
[2019-03-06] MEDS: FUROSEMIDE 40 MG/4 ML VIAL IV SCH (09:21)
[2019-03-06] MEDS: MENTHOL/ZINC OXIDE OINT 71 GM JAR TOP SCH (09:22)
[2019-03-06] MEDS: PANTOPRAZOLE 40 MG TABLET PO SCH (09:22)
[2019-03-06 09:47] VITALS: BP 149/68
== END 2019-03-06 13:00 | disposition hospice, home (50) | DRG 668 ==
LOC: EDBD → EDUNIT# → N.ED 16:23 → SUATTDRO 20:37 → N.EDINP 20:37 → N.3E 21:44 → N.ICU 03-01 13:00 → N.5E 03-03 14:32
PROVIDERS: ADMIT Family Medicine; ATTEND Internal Medicine